=== PATIENT | female | born 2005 | race Caucasian/White ===

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

== ENCOUNTER → 2025-02-24 | Outpatient (CLI) | payer OTHER, SELFPAY ==
[2025-02-24 12:09] LABS: Hematocrit 41.3 % (37-47); Hemoglobin 13.2 g/dL (12.0-15.0); Immature Granulocytes Count 0.020 X10^3/uL (0.0-0.0); Mean Corp Hgb Conc 32.0 g/dL (32-36); Mean Corpuscular Volume 86.0 fL (81-99); Mean Platelet Vol. 10.2 fl (6.2-12.0); NRBC Flagged by Analyzer 0 % (0-5); Platelet Count 236 K/mm3 (150-450); RBC Distribution Width CV 15.2 % (11.6-14.6); RBC Distribution Width SD 47.9 fl (35.1-43.9); Red Blood Count 4.80 M/mm3 (4.2-5.4); White Blood Count 5.8 K/mm3 (4.4-11.0)
[2025-02-24 12:55] LABS: AST(SGOT) 20 U/L (<=31); Alanine Aminotransfer ALT/SGPT 14 U/L (<=34); Albumin, Serum 4.6 g/dL (3.5-5.0); Alkaline Phosphatase 86 U/L (35-104); Anion Gap 10 (5-15); BUN 13 mg/dL (4-19); BUN/Creat Ratio 16.5 RATIO (10-20); Calcium,Total 9.6 mg/dL (7.6-11.0); Carbon Dioxide 26.0 mmol/L (21.0-32.0); Chloride 104 mmol/L (98-108); Ferritin 11 ng/mL (22-378); Follicle Stimulating Hormone 4.5 mIU/mL; Globulin 2.5 g/dL (2.2-4.2); Glucose 88 mg/dL (70-99); Potassium 3.9 mmol/L (3.3-5.1)
== END | disposition home or self-care (01) ==
PROVIDERS: PCP Family Medicine; Visit Provider Family Medicine
DX: R00.0 Tachycardia, unspecified (principal); N91.5 Oligomenorrhea, unspecified
CPT/HCPCS: 36415; 80053; 82627; 82728; 83001; 83002; 84403; 84443; 85025; 82626

== ENCOUNTER → 2025-03-11 | Outpatient (CLI) | payer OTHER, SELFPAY ==
--- OUTSIDE RECORDS SUMMARY | 2025-03-11 09:00 | XMS RPT_ITS | CCD ---
Author Organization [facility] Care Team Providers [facility] Manager Name Role Phone Donald Bangura DO Primary Care Provider [phone] LASHAY GARRISON Attending Unavailable LASHAY GARRISON Referring Unavailable DONALD BANGURA Primary Care Unavailable LASHAY GARRISON Referring Unavailable DONALD BANGURA Primary Care Unavailable DONALD BANGURA Primary Care Unavailable DONALD BANGURA Primary Care Unavailable DONALD BANGURA Attending Unavailable DONATO LUBIN Attending Unavailable DONALD BANGURA Primary Care Unavailable Donald Bangura DO Primary Care Provider Reinaldo JAIN, Dr. Burgess Emergency Provider Dr. Corry Rock MD Primary Care Provider Reinaldo JAIN, Dr. Burgess Attending Provider Pranav JAIN, Dr. Wheatley Attending Provider Corry Rock Primary Care Unavailable Corry Rock Attending Unavailable Aditya Najera Attending Unavailable Corry Rock Primary Care Unavailable Corry Rock Referring Unavailable Corry Rock Primary Care Unavailable Corry Rock Attending Unavailable Medications Current Medications Medication Drug Class(es) Dates Sig (Normalized) Sig (Original) naproxen 500 mg oral tablet (4 sources) Nonsteroidal Anti-inflammatory Drug Start: 10-31-2023 End: 12-01-2023 take 1 tablet by mouth twice daily at mealtime for pain naproxen (NAPROSYN) 500 mg tablet Take 1 tablet by mouth two times a day with meals. for pain. Take with food. 60 tablet 0 12/01/2023 Active Comment on above: Take 1 tablet by taryn th two times a day with meals. for pain. Take with food. Completed/Discontinued Medications Medication Drug Class(es) Dates Sig (Normalized) Sig (Original) ofloxacin 3 mg/ml otic solution (2 sources) Quinolone Antimicrobial Start: 02-16-2019 End: 01-30-2022 ofloxacin (FLOXIN) 0.3 % otic solution Indications: Acute swimmer's ear of left side Use 5 Drops in the left ear once daily. 10 mL 02/16/2019 01/30/2022 Discontinued Comment on above: Use 5 Drops in the l eft ear once daily. Problems Problem Classification Problem Date Documented Date Episodic/Chronic Administrative/socia l admission (2 sources) Special examination status; Translations: [Encounter for examination for participation in sport] 02-09-2020 Episodic Cardiac dysrhythmias (5 sources) Sinus tachycardia; Translations: [Tachycardia, unspecified] Onset: 02-25-2025 12-21-2024 Episodic Immunizations and screening for infectious disease (1 source) Patient encounter status; Translations: [Encounter for immunization] 02-05-2023 Episodic Joint disorders and dislocations; trauma-related (1 source) Dislocation of acromioclavicular joint; Translations: [Unspecified dislocation of left acromioclavicular joint, initial encounter] 10-31-2023 Episodic Other acquired deformities (7 sources) Scoliosis deformity of spine; Translations: [Scoliosis, unspecified] Onset: 04-09-2013 04-09-2013 Chronic Other circulatory disease (2 sources) Elevated blood-pressure reading without diagnosis of hypertension; Translations: [Elevated blood-pressure reading, without diagnosis of hypertension] 12-21-2024 Episodic Other lower respiratory disease (2 sources) Dyspnea; Translations: [Dyspnea, unspecified] 12-21-2024 Episodic Other lower respiratory disease (2 sources) Hyperventilation; Translations: [Hyperventilation] 12-21-2024 Episodic Other non-traumatic joint disorders (2 sources) Pain in left shoulder; Translations: [Pain in joint, shoulder region] 10-31-2023 Episodic Residual codes; unclassified (1 source) Pain; Translations: [Pain, unspecified] 10-31-2023 Episodic Residual codes; unclassified (1 source) Pain, unspecified; Translations: [Pain] Onset: 10-31-2023 Episodic Sprains and strains (2 sources) Strain of muscle, fascia and tendon of other parts of biceps, left arm, initial encounter; Translations: [Sprains and strains of other specified sites of shoulder and upper arm] Onset: 11-03-2023 11-03-2023 Episodic Results Test Name Value Interpretation Reference Range Facility DHEA Sulfateon 02-25-2025 DHEA SULFATE 379.0 ug/dL Normal 110.0-431.7 [facility] Comment on above: Order Comment: N Result Comment: Perf ormed at: [facility] [address] [id number] Internal Revenue Service Agent: Edmar Camilo PhD, Phone: [phone] Performed By: #### L 509.3001, L501.9520, L100.0100, L503.6550, L500.4050, L3300.1500, L3100.5055 ####[facility] [address] [place], [place], [id number] L509.3001on 02-25-2025 Testosterone [Mass/Vol] 53.20 ng/dL Normal 9-58 [facility] Comment on above: Order Comment: ABNER Smith ADD TESTOSTERONE TO 02/24/25 LABS. THG4 3D. G4 4J. Performed By: #### L 509.3001, L501.9520, L100.0100, L503.6550, L500.4050, L3300.1500, L3100.5055 ####[facility] [address] [place], [place], [id number] Absolute lymphocyte countOrd ered By: Corry Rock on 02-24-2025 Lymphocytes Auto (Unsp spec) [#/Vol] 1.80 10*3/uL 0.83-4.51 [facility] Absolute neutrophil countOrd ered By: Corry Rock on 02-24-2025 Neutrophils (Bld) [#/Vol] 3.4 10*3/uL 2.0-7.7 [facility] Anion gap in Serum or Plasma Ordered By: Corry Rock on 02-24-2025 Anion gap [Moles/Vol] 10 mmol/L -15 [facility] Automated lymphocyte count a s percentage of total leukocytesOrdered By: Corry Rock on 02-24-2025 Lymphocytes/100 WBC Auto (Unsp spec) 31.1 % - [facility] BUN/creatinine ratioOrdered By: Corrymayco Rock on 02-24-2025 Urea nitrogen/Creatinine [Mass ratio] 16.5 mg/mg 10- [facility] Basophil percentageOrdered B y: Corry Rock on 02-24-2025 Basophils/100 WBC (Bld) 0.3 % 0-1 [facility] Bilirubin, totalOrdered By: Corry Rock on 02-24-2025 Bilirubin [Mass/Vol] 1.11 mg/dL 0.00-1.30 [facility] CBC W/Diff, Automatedon 02-11 Absolute Lymph 1.80 X10 3/uL Normal 0.83-4.51 [facility] Comment on above: Performed By: #### L 509.3001, L501.9520, L100.0100, L503.6550, L500.4050, L3300.1500, L3100.5055 #### [facility] [address] [place], [address] Absolute Neut 3.4 X10 3/uL Normal 2.0-7.7 [facility] Comment on above: Performed By: #### L 509.3001, L501.9520, L100.0100, L503.6550, L500.4050, L3300.1500, L3100.5055 #### [facility] [address] [place], [address] Basophils/100 WBC (Bld) 0.3 % Normal 0-1 [facility] Comment on above: Performed By: #### L 509.3001, L501.9520, L100.0100, L503.6550, L500.4050, L3300.1500, L3100.5055 #### [facility] [address] [place], [address] Eosinophils/100 WBC (Bld) 1.6 % Normal 0-5 [facility] Comment on above: Performed By: #### L 509.3001, L501.9520, L100.0100, L503.6550, L500.4050, L3300.1500, L3100.5055 #### [facility] [address] [place], [address] Erythrocyte distribution width (RBC) [Ratio] 15.2 % High 11.6-14.6 [facility] Comment on above: Performed By: #### L 509.3001, L501.9520, L100.0100, L503.6550, L500.4050, L3300.1500, L3100.5055 #### [facility] [address] [place], [address] Hematocrit (Bld) [Volume fraction] 41.3 % Normal 37-47 [facility] Comment on above: Performed By: #### L 509.3001, L501.9520, L100.0100, L503.6550, L500.4050, L3300.1500, L3100.5055 #### [facility] [address] [place], [address] Hemoglobin (Bld) [Mass/Vol] 13.2 g/dL Normal 12.0-15.0 [facility] Comment on above: Performed By: #### L 509.3001, L501.9520, L100.0100, L503.6550, L500.4050, L3300.1500, L3100.5055 #### [facility] [address] [place], [address] IG% 0.300 Normal 0.0-0.9 [facility] Comment on above: Result Comment: IG% - Immature Granulocytes (promyelocytes, myelocytes and metamyelocytes) > 1% indicates that a LEFT SHIFT is Present. Performed By: #### L 509.3001, L501.9520, L100.0100, L503.6550, L500.4050, L3300.1500, L3100.5055 #### [facility] [address] [place] [place], [address] Lymphocytes/100 WBC (Bld) 31.1 % Normal 19-41 [facility] Comment on above: Performed By: #### L 509.3001, L501.9520, L100.0100, L503.6550, L500.4050, L3300.1500, L3100.5055 #### [facility] [address] [place], [address] MCH (RBC) [Entitic mass] 27.5 pg Normal 27.0-32.0 [facility] Comment on above: Performed By: #### L 509.3001, L501.9520, L100.0100, L503.6550, L500.4050, L3300.1500, L3100.5055 #### [facility] [address] [place], [address] MCHC (RBC) [Mass/Vol] 32.0 g/dL Normal 32-36 [facility] Comment on above: Performed By: #### L 509.3001, L501.9520, L100.0100, L503.6550, L500.4050, L3300.1500, L3100.5055 #### [facility] [address] [place], [address] MCV (RBC) [Entitic vol] 86.0 fL Normal 81-99 [facility] Comment on above: Performed By: #### L 509.3001, L501.9520, L100.0100, L503.6550, L500.4050, L3300.1500, L3100.5055 #### [facility] [address] [place], [address] Monocytes/100 WBC (Bld) 7.4 % Normal 0-10 [facility] Comment on above: Performed By: #### L 509.3001, L501.9520, L100.0100, L503.6550, L500.4050, L3300.1500, L3100.5055 #### [facility] [address] [place], [address] Neutrophils/100 WBC (Bld) 59.3 % Normal 47-70 [facility] Comment on above: Performed By: #### L 509.3001, L501.9520, L100.0100, L503.6550, L500.4050, L3300.1500, L3100.5055 #### [facility] [address] [place], [address] Nucleated RBC (Bld) [#/Vol] 0 10*3/uL Normal 0-5 [facility] Comment on above: Performed By: #### L 509.3001, L501.9520, L100.0100, L503.6550, L500.4050, L3300.1500, L3100.5055 #### [facility] [address] [place], [address] Platelet mean volume (Bld) [Entitic vol] 10.2 fL Normal 6.2-12.0 [facility] Comment on above: Performed By: #### L 509.3001, L501.9520, L100.0100, L503.6550, L500.4050, L3300.1500, L3100.5055 #### [facility] [address] [place], [address] Platelets (Bld) [#/Vol] 236 10*3/uL Normal 150-450 [facility] Comment on above: Performed By: #### L 509.3001, L501.9520, L100.0100, L503.6550, L500.4050, L3300.1500, L3100.5055 #### [facility] [address] [place], [address] RBC (Bld) [#/Vol] 4.80 10*6/uL Normal 4.2-5.4 [facility] Comment on above: Performed By: #### L 509.3001, L501.9520, L100.0100, L503.6550, L500.4050, L3300.1500, L3100.5055 #### [facility] [address] [place], [address] RDW SD 47.9 fl High 35.1-43.9 [facility] Comment on above: Performed By: #### L 509.3001, L501.9520, L100.0100, L503.6550, L500.4050, L3300.1500, L3100.5055 #### [facility] [address] [place], [address] WBC (Bld) [#/Vol] 5.8 10*3/uL Normal 4.4-11.0 [facility] Comment on above: Performed By: #### L 509.3001, L501.9520, L100.0100, L503.6550, L500.4050, L3300.1500, L3100.5055 #### [facility] [address] [place], [address] Carbon dioxide, total [Moles /volume] in Central venous bloodOrdered By: Corry Rock on 02-24-2025 CO2 [Moles/Vol] 26.0 mmol/L 21.0-32.0 [facility] Chloride assayOrdered By: Natan Rock on 02-24-2025 Chloride [Moles/Vol] 104 mmol/L 98-108 [facility] Comprehensive Metabolic Prof ilon 02-24-2025 Albumin [Mass/Vol] 4.6 g/dL Normal 3.5-5.0 [facility] Comment on above: Performed By: #### L 509.3001, L501.9520, L100.0100, L503.6550, L500.4050, L3300.1500, L3100.5055 #### [facility] [address] [place], [address] Albumin/Globulin [Mass ratio] 1.8 {ratio} Normal 0.9-2.4 [facility] Comment on above: Performed By: #### L 509.3001, L501.9520, L100.0100, L503.6550, L500.4050, L3300.1500, L3100.5055 #### [facility] [address] [place], [address] ALK PHOS 86 U/L Normal 35-104 [facility] Comment on above: Performed By: #### L 509.3001, L501.9520, L100.0100, L503.6550, L500.4050, L3300.1500, L3100.5055 #### [facility] [address] [place], [address] ALT [Catalytic activity/Vol] 14 U/L Normal <=34 [facility] Comment on above: Performed By: #### L 509.3001, L501.9520, L100.0100, L503.6550, L500.4050, L3300.1500, L3100.5055 #### [facility] [address] [place], [address] AST [Catalytic activity/Vol] 20 U/L Normal <=31 [facility] Comment on above: Performed By: #### L 509.3001, L501.9520, L100.0100, L503.6550, L500.4050, L3300.1500, L3100.5055 #### [facility] [address] [place], [address] Bilirubin [Mass/Vol] 1.11 mg/dL Normal 0.00-1.30 [facility] Comment on above: Performed By: #### L 509.3001, L501.9520, L100.0100, L503.6550, L500.4050, L3300.1500, L3100.5055 #### [facility] [address] [place], [address] BUN/CRE 16.5 RATIO Normal 10-20 [facility] Comment on above: Performed By: #### L 509.3001, L501.9520, L100.0100, L503.6550, L500.4050, L3300.1500, L3100.5055 #### [facility] [address] [place], [address] Calcium [Mass/Vol] 9.6 mg/dL Normal 7.6-11.0 [facility] Comment on above: Performed By: #### L 509.3001, L501.9520, L100.0100, L503.6550, L500.4050, L3300.1500, L3100.5055 #### [facility] [address] [place], [address] Chloride [Moles/Vol] 104 mmol/L Normal 98-108 [facility] Comment on above: Performed By: #### L 509.3001, L501.9520, L100.0100, L503.6550, L500.4050, L3300.1500, L3100.5055 #### [facility] [address] [place], [address] CO2 [Moles/Vol] 26.0 mmol/L Normal 21.0-32.0 [facility] Comment on above: Performed By: #### L 509.3001, L501.9520, L100.0100, L503.6550, L500.4050, L3300.1500, L3100.5055 #### [facility] [address] [place], [address] Creatinine [Mass/Vol] 0.76 mg/dL Normal 0.70-1.20 [facility] Comment on above: Performed By: #### L 509.3001, L501.9520, L100.0100, L503.6550, L500.4050, L3300.1500, L3100.5055 #### [facility] [address] [place], [address] GAP 10 Normal 5-15 [facility] Comment on above: Performed By: #### L 509.3001, L501.9520, L100.0100, L503.6550, L500.4050, L3300.1500, L3100.5055 #### [facility] [address] [place] [place], [address] GFR/1.73 sq M.predicted among non-blacks MDRD (S/P/Bld) [Vol rate/Area] 114 mL/min/{1.73_m2} Normal >60 [facility] Comment on above: Result Comment: mL/m in/1.73m2 CKD-EPI Creatinine Equation (2020) Performed By: #### L 509.3001, L501.9520, L100.0100, L503.6550, L500.4050, L3300.1500, L3100.5055 #### [facility] [address] [place], [address] Globulin (S) [Mass/Vol] 2.5 g/dL Normal 2.2-4.2 [facility] Comment on above: Performed By: #### L 509.3001, L501.9520, L100.0100, L503.6550, L500.4050, L3300.1500, L3100.5055 #### [facility] [address] [place], [address] Glucose [Mass/Vol] 88 mg/dL Normal 70-99 [facility] Comment on above: Performed By: #### L 509.3001, L501.9520, L100.0100, L503.6550, L500.4050, L3300.1500, L3100.5055 #### [facility] [address] [place], [address] Potassium [Moles/Vol] 3.9 mmol/L Normal 3.3-5.1 [facility] Comment on above: Performed By: #### L 509.3001, L501.9520, L100.0100, L503.6550, L500.4050, L3300.1500, L3100.5055 #### [facility] [address] [place], [address] Sodium [Moles/Vol] 140 mmol/L Normal 133-145 [facility] Comment on above: Performed By: #### L 509.3001, L501.9520, L100.0100, L503.6550, L500.4050, L3300.1500, L3100.5055 #### [facility] [address] [place], [address] T PROT 7.2 g/dL Normal 5.9-8.4 [facility] Comment on above: Performed By: #### L 509.3001, L501.9520, L100.0100, L503.6550, L500.4050, L3300.1500, L3100.5055 #### [facility] [address] [place], [address] Urea nitrogen [Mass/Vol] 13 mg/dL Normal 4-19 [facility] Comment on above: Performed By: #### L 509.3001, L501.9520, L100.0100, L503.6550, L500.4050, L3300.1500, L3100.5055 #### [facility] [address] [place], [address] Eosinophil percentageOrdered By: Corry Rock on 02-24-2025 Eosinophils/100 WBC (Bld) 1.6 % 0-5 [facility] Erythrocyte distribution wid th ratioOrdered By: Corry Rock on 02-24-2025 Erythrocyte distribution width (RBC) [Ratio] 15.2 % High 11.6-14.6 [facility] Erythrocyte distribution wid th standard deviationOrdered By: Corry Rock on 02-24-2025 Erythrocyte distribution width (RBC) [Ratio] 47.9 fl High 35.1-43.9 [facility] FSH and LHon 02-24-2025 FSH 4.5 mIU/mL Normal [facility] Comment on above: Result Comment: FEMA LE: Follicular: 1.4 - 18.1 mIU/mL Midcycle: 3.4 - 33.4 mIU/mL Luteal: 1.5 - 9.1 mIU/mL Post Menopause: 23.0 - 116.3 mIU/mL MALE: 1.4 - 18.1 mIU/mL Performed By: #### L 509.3001, L501.9520, L100.0100, L503.6550, L500.4050, L3300.1500, L3100.5055 ####[facility] [address] [place], [place], [id number] LH 15.9 mIU/mL Normal [facility] Comment on above: Result Comment: FEMA LE: Follicular: 1.9-12.5 mIU/mL Midcycle: 8.7-76.3 mIU/mL Luteal: 0.5-16.9 mIU/mL Post Menopause: 15.9-54.0 mIU/mL MALE: 20-70 Years: 1.5-9.3 mIU/mL >70 Years: 3.1-34.6 mIU/mL Performed By: #### L 509.3001, L501.9520, L100.0100, L503.6550, L500.4050, L3300.1500, L3100.5055 ####[facility] [address] [place], [address] Ferritinon 02-24-2025 Ferritin [Mass/Vol] 11 ng/mL Low 22-378 [facility] Comment on above: Performed By: #### L 509.3001, L501.9520, L100.0100, L503.6550, L500.4050, L3300.1500, L3100.5055 ####[facility] [address] [place], [address] Glomerular filtration rate ( GFR) estimation/1.73 sq m using serum, plasma, or whole bOrdered By: Corry Rock on 02-24-2025 GFR/1.73 sq M.predicted among non-blacks MDRD (S/P/Bld) [Vol rate/Area] 114 mL/min/{1.73_m2} >60 [facility] Comment on above: mL/min/1.73m2 CKD-EP I Creatinine Equation (2020) Hematocrit Auto (Bld) [Volum e fraction]Ordered By: Corry Rock on 02-24-2025 Hematocrit (Bld) [Volume fraction] 41.3 % 37-47 [facility] Hemoglobin measurementOrdere d By: Corry Rock on 02-24-2025 Hemoglobin (Bld) [Mass/Vol] 13.2 g/dL 12.0-15.0 [facility] Immature granulocytes/100 WB C Auto (Bld)Ordered By: Corry Rock on 02-24-2025 Immature granulocytes/100 WBC (Bld) 0.300 % 0.0-0.9 [facility] Comment on above: IG% - Immature Granu locytes (promyelocytes, myelocytes and metamyelocytes) > 1% indicates that a LEFT SHIFT is Present. LH ser/plasOrdered By: Margarita Rock on 02-24-2025 Lutropin Qn 15.9 m[IU]/mL [facility] Comment on above: FEMALE:Follicular: 1 .9-12.5 mIU/mLMidcycle: 8.7-76.3 mIU/mLLuteal: 0.5-16.9 mIU/mLPost Menopause: 15.9-54.0 mIU/mLMALE:20-70 Years: 1.5-9.3 mIU/mL>70 Years: 3.1-34.6 mIU/mL Laboratory - Chemistry and C hemistry - challengeOrdered By: Corry Rock on 02-24-2025 AST [Catalytic activity/Vol] 20 U/L <32 [facility] Testosterone [Mass/Vol] 53.20 ng/dL 9-58 [facility] MCV (mean corpuscular volume ) determinationOrdered By: Corry Rock on 02-24-2025 MCV (RBC) [Entitic vol] 86.0 fL 81-99 [facility] Mean corpuscular hemoglobin (MCH) determinationOrdered By: Corry Rock on 02-24-2025 MCH (RBC) [Entitic mass] 27.5 pg 27.0-32.0 [facility] Mean corpuscular hemoglobin concentration (MCHC) determinationOrdered By: Corry Rock on 02-24-2025 MCHC (RBC) [Mass/Vol] 32.0 g/dL 32-36 [facility] Mean platelet volume determi nationOrdered By: Corry Rock on 02-24-2025 Platelet mean volume (Bld) [Entitic vol] 10.2 fL 6.2-12.0 [facility] Monocyte percentageOrdered B y: Corry Rock on 02-24-2025 Monocytes/100 WBC (Bld) 7.4 % 0-10 [facility] Neutrophil percentageOrdered By: Corry Rock on 02-24-2025 Neutrophils/100 WBC (Bld) 59.3 % 47-70 [facility] Nucleated red blood cell per centageOrdered By: Corry Rock on 02-24-2025 Nucleated RBC/100 WBC (Bld) [Ratio] 0 % 0-5 [facility] Platelet countOrdered By: Natan Rock on 02-24-2025 Platelets (Bld) [#/Vol] 236 10*3/uL 150-450 [facility] Potassium measurement (mass/ volume)Ordered By: Corry Rock on 02-24-2025 Potassium (Unsp spec) [Mass/Vol] 3.9 mmol/L 3.3-5.1 [facility] RBC Auto (Bld) [#/Vol]Ordere d By: Corry Rock on 02-24-2025 RBC (Bld) [#/Vol] 4.80 10*6/uL 4.2-5.4 [facility] Serum creatinine measurement (mass/volume)Ordered By: Corry Rock on 02-24-2025 Creatinine [Mass/Vol] 0.76 mg/dL 0.70-1.20 [facility] Serum globulin measurementOr dered By: Corry Rock on 02-24-2025 Globulin (S) [Mass/Vol] 2.5 g/dL 2.2-4.2 [facility] Serum glucose measurement (m ass/volume)Ordered By: Corry Rock on 02-24-2025 Glucose [Mass/Vol] 88 mg/dL 70-99 [facility] Serum or plasma alanine reese otransferase (ALT) measurementOrdered By: Corry Rock on 02-24-2025 ALT [Catalytic activity/Vol] 14 U/L <35 [facility] Serum or plasma albumin santiago urement (mass/volume)Ordered By: Corry Rock on 02-24-2025 Albumin [Mass/Vol] 4.6 g/dL 3.5-5.0 [facility] Serum or plasma albumin/glob ulin mass ratioOrdered By: Corry Rock on 02-24-2025 Albumin/Globulin [Mass ratio] 1.8 {ratio} 0.9-2.4 [facility] Serum or plasma alkaline paty sphatase measurementOrdered By: Corry Rock on 02-24-2025 ALP [Catalytic activity/Vol] 86 U/L 35-104 [facility] Serum or plasma calcium santiago urement (mass/volume)Ordered By: Corry Rock on 02-24-2025 Calcium [Mass/Vol] 9.6 mg/dL 7.6-11.0 [facility] Serum or plasma ferritin jose surement (mass/volume)Ordered By: Corry Rock on 02-24-2025 Ferritin [Mass/Vol] 11 ng/mL Low 22-378 [facility] Serum or plasma urea nitroge n measurement (mass/volume)Ordered By: Corry Rock on 02-24-2025 Urea nitrogen [Mass/Vol] 13 mg/dL 4-19 [facility] Sodium levelOrdered By: Julieta Rock on 02-24-2025 Sodium [Moles/Vol] 140 mmol/L 133-145 [facility] TSH DL <= 0.005 mIU/L QnOrde red By: Corry Rock on 02-24-2025 TSH Qn 1.410 uIU/mL 0.300-4.200 [facility] Thyroid Stim Hormone (TSH)on 02-24-2025 TSH 1.410 uIU/mL Normal 0.300-4.200 [facility] Comment on above: Performed By: #### L 509.3001, L501.9520, L100.0100, L503.6550, L500.4050, L3300.1500, L3100.5055 ####[facility] [address] [facility] [place], [address] Total proteinOrdered By: Kenrick Rock on 02-24-2025 Protein [Mass/Vol] 7.2 g/dL 5.9-8.4 [facility] White blood cell (WBC) count Ordered By: Corry Rock on 02-24-2025 WBC (Bld) [#/Vol] 5.8 10*3/uL 4.4-11.0 [facility] 12 Lead EKGon 12-21-2024 12 Lead EKG [facility] [address] [place] [address] 12 Lead EKG 12/21/24 1647 MR#: [id number] Acct: [id number] Name: THAD HUGHES Rep #: [id number] : 2005 19 From: Donato Marcial MD Attending Dr: Status: DEP ER Ordering Dr: Aditya Najera MD Date: 12/21/24 Location: ED Sex: F C Admitted: Test Reason : Blood Pressure : */* mmHG Vent. Rate : 112 BPM Atrial Rate : 112 BPM P-R Int : 152 ms QRS Dur : 86 ms QT Int : 306 ms P-R-T Axes : 70 75 -15 degrees QTcB Int : [address] T wave abnormality, consider inferolateral ischemia Abnormal ECG Confirmed by Donato Marcial ([id number]), publications editor ATIF DYE ([id number]) on 12/23/2024 6:10:02 AM Referred By: Confirmed By: Donato Marcial 12/23/24609 Date Donato Marcial MD CC: Dr. Corry Rock MD; Dr. Aditya Najera MD Signed Normal [facility] Absolute lymphocyte countOrd ered By: Aditya Najera on 12-21-2024 Lymphocytes Auto (Unsp spec) [#/Vol] 1.77 10*3/uL 0.83-4.51 [facility] Absolute neutrophil countOrd ered By: Adityaserge Najera on 12-21-2024 Neutrophils (Bld) [#/Vol] 5.5 10*3/uL 2.0-7.7 [facility] Amphetamine detection with 1 000 ng/mL as cutoffOrdered By: Aditya Najera on 12-21-2024 Amphetamines Screen method >1000 ng/mL Ql (U) Negative < 200 ng/mL [facility] Anion gap in Serum or Plasma Ordered By: Aditya Najera on 12-21-2024 Anion gap [Moles/Vol] 17 mmol/L High 5- [facility] Automated lymphocyte count a s percentage of total leukocytesOrdered By: Aditya Najera on 12-21-2024 Lymphocytes/100 WBC Auto (Unsp spec) 22.4 % - [facility] BUN/creatinine ratioOrdered By: Adityaserge Najera on 12-21-2024 Urea nitrogen/Creatinine [Mass ratio] 12.9 mg/mg 05-02 [facility] Basic Metabolic Profile (BMP )on 12-21-2024 BUN/CRE 12.9 RATIO Normal 05-02 [facility] Comment on above: Performed By: #### L 501.9576, L501.4021, L100.0100, L500.2500 ####[facility] [address] [place], [address] Calcium [Mass/Vol] 10.5 mg/dL Normal 7.6-11.0 [facility] Comment on above: Performed By: #### L 501.9520, L501.4021, L100.0100, L500.2500 ####[facility] [address] [place], [address] Chloride [Moles/Vol] 102 mmol/L Normal 98-108 [facility] Comment on above: Performed By: #### L 501.9520, L501.4021, L100.0100, L500.2500 ####[facility] [address] [place], [address] CO2 [Moles/Vol] 19.3 mmol/L Low 21.0-32.0 [facility] Comment on above: Performed By: #### L 501.9520, L501.4021, L100.0100, L500.2500 ####[facility] [address] [place], [address] Creatinine [Mass/Vol] 0.78 mg/dL Normal 0.70-1.20 [facility] Comment on above: Performed By: #### L 501.9520, L501.4021, L100.0100, L500.2500 ####[facility] [address] [place], [address] ECRCL 108.60 ml/min Normal 50-250 [facility] Comment on above: Performed By: #### L 501.9520, L501.4021, L100.0100, L500.2500 ####[facility] [address] [place], [address] GAP 17 High 5-15 [facility] Comment on above: Performed By: #### L 501.9520, L501.4021, L100.0100, L500.2500 ####[facility] [address] [place], [address] GFR/1.73 sq M.predicted among non-blacks MDRD (S/P/Bld) [Vol rate/Area] 112 mL/min/{1.73_m2} Normal >60 [facility] Comment on above: Result Comment: mL/m in/1.73m2 CKD-EPI Creatinine Equation (2020) Performed By: #### L 501.9520, L501.4021, L100.0100, L500.2500 ####[facility] [address] [place], [address] Glucose [Mass/Vol] 106 mg/dL High 70-99 [facility] Comment on above: Performed By: #### L 501.9520, L501.4021, L100.0100, L500.2500 ####[facility] [address] [place], [address] Potassium [Moles/Vol] 3.3 mmol/L Normal 3.3-5.1 [facility] Comment on above: Result Comment: Hemo lysis present, Results??could be affected. ?? Performed By: #### L 501.9520, L501.4021, L100.0100, L500.2500 ####[facility] [address] [place], [address] Sodium [Moles/Vol] 139 mmol/L Normal 133-145 [facility] Comment on above: Performed By: #### L 501.9520, L501.4021, L100.0100, L500.2500 ####[facility] [address] [place], [address] Urea nitrogen [Mass/Vol] 10 mg/dL Normal 4-19 [facility] Comment on above: Performed By: #### L 501.9520, L501.4021, L100.0100, L500.2500 ####[facility] [address] [place], [address] Basophil percentageOrdered B y: Aditya Najera on 12-21-2024 Basophils/100 WBC (Bld) 0.5 % 0-1 [facility] Blood [facility] by [facility] Base excess Calc (Bld) [Moles/Vol] -2 mmol/L Normal -2 to +2 [facility] Comment on above: Performed By: #### L 9000.0800 #### [facility] [address] [place], [address] Blood Gas Type ART Normal [facility] Comment on above: Performed By: #### L 9000.0800 #### [facility] [address] [place], [address] CO2 [Moles/Vol] 21 mmol/L Normal [facility] Comment on above: Performed By: #### L 9000.0800 #### [facility] [address] [place], [address] HCO3 (Bld) [Moles/Vol] 20.1 mmol/L Low 22-26 [facility] Comment on above: Performed By: #### L 9000.0800 #### [facility] [address] [place], [address] Mode Not entered Normal [facility] Comment on above: Performed By: #### L 9000.0800 #### [facility] [address] [place], [address] O2 Delivery Dev Room Air Normal [facility] Comment on above: Performed By: #### L 9000.0800 #### [facility] [address] [place], [address] pCO2 20.8 mmHg Low 35-45 [facility] Comment on above: Performed By: #### L 9000.0800 #### [facility] [address] [place], [address] pH (Bld) 7.59 [pH] High 7.35-7.45 [facility] Comment on above: Performed By: #### L 9000.0800 #### [facility] [address] [place], [address] PO2 113 mmHG High 75-100 [facility] Comment on above: Performed By: #### L 9000.0800 #### [facility] [address] [place], [address] Read Back By Yes Normal [facility] Comment on above: Performed By: #### L 9000.0800 #### [facility] [address] [place], [address] Results To najera Normal [facility] Comment on above: Performed By: #### L 9000.0800 #### [facility] [address] [place], [address] SITE L Brach Normal [facility] Comment on above: Performed By: #### L 9000.0800 #### [facility] [address] [place], [address] SO2 99 Normal 95-99 [facility] Comment on above: Performed By: #### L 9000.0800 #### [facility] [address] [place], [address] Time Given 17:36:52 Normal [facility] Comment on above: Performed By: #### L 9000.0800 #### [facility] [address] [place], [address] Blood base excess determinat ionOrdered By: Aditya Najera on 12-21-2024 Base excess Calc (BldV) [Moles/Vol] -2 mmol/L -2-2 [facility] Blood bicarbonate measuremen tOrdered By: Aditya Najera on 12-21-2024 HCO3 (Bld) [Moles/Vol] 20.1 mmol/L Low 22-26 [facility] CBC W/Diff, Automatedon 06-1 0-2025 Absolute Lymph 1.77 X10 3/uL Normal 0.83-4.51 [facility] Comment on above: Performed By: #### L 501.9520, L501.4021, L100.0100, L500.2500 ####[facility] [address] [place], [address] Absolute Neut 5.5 X10 3/uL Normal 2.0-7.7 [facility] Comment on above: Performed By: #### L 501.9520, L501.4021, L100.0100, L500.2500 ####[facility] [address] [place], [address] Basophils/100 WBC (Bld) 0.5 % Normal 0-1 [facility] Comment on above: Performed By: #### L 501.9520, L501.4021, L100.0100, L500.2500 ####[facility] [address] [place], [address] Eosinophils/100 WBC (Bld) 0.3 % Normal 0-5 [facility] Comment on above: Performed By: #### L 501.9520, L501.4021, L100.0100, L500.2500 ####[facility] [address] [place], [address] Erythrocyte distribution width (RBC) [Ratio] 13.2 % Normal 11.6-14.6 [facility] Comment on above: Performed By: #### L 501.9520, L501.4021, L100.0100, L500.2500 ####[facility] [address] [place], [address] Hematocrit (Bld) [Volume fraction] 39.4 % Normal 37-47 [facility] Comment on above: Performed By: #### L 501.9520, L501.4021, L100.0100, L500.2500 ####[facility] [address] [place], [address] Hemoglobin (Bld) [Mass/Vol] 13.4 g/dL Normal 12.0-15.0 [facility] Comment on above: Performed By: #### L 501.9520, L501.4021, L100.0100, L500.2500 ####[facility] [address] [place], [address] IG% 0.400 Normal 0.0-0.9 [facility] Comment on above: Result Comment: IG% - Immature Granulocytes (promyelocytes, myelocytes and metamyelocytes) > 1% indicates that a LEFT SHIFT is Present. Performed By: #### L 501.9520, L501.4021, L100.0100, L500.2500 ####[facility] [address] [place], [address] Lymphocytes/100 WBC (Bld) 22.4 % Normal 19-41 [facility] Comment on above: Performed By: #### L 501.9520, L501.4021, L100.0100, L500.2500 ####[facility] [address] [place], [address] MCH (RBC) [Entitic mass] 27.7 pg Normal 27.0-32.0 [facility] Comment on above: Performed By: #### L 501.9520, L501.4021, L100.0100, L500.2500 ####[facility] [address] [place], [address] MCHC (RBC) [Mass/Vol] 34.0 g/dL Normal 32-36 [facility] Comment on above: Performed By: #### L 501.9520, L501.4021, L100.0100, L500.2500 ####[facility] [address] [place], [address] MCV (RBC) [Entitic vol] 81.6 fL Normal 81-99 [facility] Comment on above: Performed By: #### L 501.9520, L501.4021, L100.0100, L500.2500 ####[facility] [address] [place], [address] Monocytes/100 WBC (Bld) 7.2 % Normal 0-10 [facility] Comment on above: Performed By: #### L 501.9520, L501.4021, L100.0100, L500.2500 ####[facility] [address] [place], [address] Neutrophils/100 WBC (Bld) 69.2 % Normal 47-70 [facility] Comment on above: Performed By: #### L 501.9520, L501.4021, L100.0100, L500.2500 ####[facility] [address] [place], [address] Nucleated RBC (Bld) [#/Vol] 0 10*3/uL Normal 0-5 [facility] Comment on above: Performed By: #### L 501.9520, L501.4021, L100.0100, L500.2500 ####[facility] [address] [place], [address] Platelet mean volume (Bld) [Entitic vol] 9.8 fL Normal 6.2-12.0 [facility] Comment on above: Performed By: #### L 501.9520, L501.4021, L100.0100, L500.2500 ####[facility] [address] [place], [address] Platelets (Bld) [#/Vol] 261 10*3/uL Normal 150-450 [facility] Comment on above: Performed By: #### L 501.9520, L501.4021, L100.0100, L500.2500 ####[facility] [address] [place], [address] RBC (Bld) [#/Vol] 4.83 10*6/uL Normal 4.2-5.4 [facility] Comment on above: Performed By: #### L 501.9520, L501.4021, L100.0100, L500.2500 ####[facility] [address] [place], [address] RDW SD 38.9 fl Normal 35.1-43.9 [facility] Comment on above: Performed By: #### L 501.9520, L501.4021, L100.0100, L500.2500 ####[facility] [address] [place], [address] WBC (Bld) [#/Vol] 7.9 10*3/uL Normal 4.4-11.0 [facility] Comment on above: Performed By: #### L 501.9520, L501.4021, L100.0100, L500.2500 ####[facility] [address] [place], [address] Carbon dioxide, total [Moles /volume] in Central venous bloodOrdered By: Aditya Najera on 12-21-2024 CO2 [Moles/Vol] 19.3 mmol/L Low 21.0-32.0 [facility] Chest 1 View (Portable)on Chest 1 View (Portable) [facility] Imaging Services [address] [place] [address] Chest 1 View (Portable) MR#: [id number] Acct: [id number] Name: THAD HUGHES Rep #: [id number] : 2005 F 19 From: Gela Mishra PCP: Dr. Corry Rock MD Status: [facility] ER Study: Chest 1 View (Portable) Date of Exam: 12/21/24 Exam# [id number] Ordering Dr: Aditya Najera MD PROCEDURE: CHEST 1 VIEW (PORTABLE) 12/21/2024 REASON FOR EXAM: CHEST PAIN TECHNIQUE: Frontal view of the chest. COMPARISON: None FINDINGS: No focal consolidations. No pleural effusion or pneumothorax. Cardiac silhouette is unremarkable. No acute fractures. RAD/Chest 1 View (Portable) IMPRESSION: No focal consolidations. Reading Location: [facility] CC: Dr. Corry Rock MD; Dr. Aditya Najera MD Can Maker: Signed Normal [facility] Chloride assayOrdered By: Noelle Najera on 12-21-2024 Chloride [Moles/Vol] 102 mmol/L 98-108 [facility] D-Dimer Quantitative (DVT/PE )on 12-21-2024 D-DIMER QUANT 0.27 FEU/ug/m Normal 0.27-0.49 [facility] Comment on above: Result Comment: NORM AL D-Dimer level (<0.50) indicates no DVT or PE. Performed By: #### L 300.8000 #### [facility] [address] [facility] [place], [address] Emergency Department Summary on 12-21-2024 Emergency Department Summary [facility] Medical Records Department [address] [place] [address] Emergency Department Summary 12/21/24 MR#: [id number] Acct: [id number] Name: THAD HUGHES Rep #: [id number] : 2005 19 From: Aditya Najera MD PCP: Dr. Corry Rock MD Status:REG ER Location: ED HPI History of Present Illness Chief Complaint: Palpitations Detail of Chief Complaint: Palpitations and shortness of breath that started on Friday Informant: patient and parent Onset/Context/Timin g Onset: Today and Days Context: Sudden Onset Timing: Intermittent Quality: Palpitations and pleuritic chest pain with shortness of breath Location: Cardiovascular Current Severity: Mild Maximum Severity: Moderate Worsened by: Anxiousness, activity Relieved by: Not applicable Associated Symptoms Associated Symptoms: recent long distance trip from [place] Narrative Narrative: Patient is a 19-year-old female. She presents with palpitations that started on Friday while flying back from [place]. She was short of breath. Episode lasted approximate 1 hour. She had no discomfort or palpitations on Friday or Friday. She has had 2 episodes today. First episode lasted 30+ minutes. The second episode started at approximately 1530 and has not abated. She reports palpitations, she also reported intermittent bilateral extremity tingling and perioral tingling. She does admit that she is nervous. She is not on any hormonal therapy. There is no history of VTE. There is no family history of VTE. She denies leg pain, swelling or discoloration. She denies fever, chills night sweats. She denies weight gain or weight loss. She denies heat or cold intolerance. Patient denies rhinorrhea, congestion, postnasal drainage or sore throat. Patient denies cough. Prior similar symptoms: No Recent Illness/Hospitaliza tion: No PFSH PFSH Medical History no medical history no medical history Home Medications ???Medication ???Instructions ???Recorded ???Last Taken ???Type NK 12/21/24 Unknown History Allergy/AdvReac Type Severity Reaction Status Date / Time No Known Allergies Allergy Verified 12/21/24 16:23 Surgical History no surgical history no surgical history Social History (Updated 12/21/24 @ 17:[address] Aditya Najera MD) household members: family Smoking Status: Never smoker ROS ROS ED Constitutional Constitutional ED: Denies chills, fever(s), subjective, sweats or weight loss Eyes Eyes: Denies blurry vision or change in vision ENT ENT ED: Denies ear pain, rhinorrhea or sore throat Cardiovascular Cardiovascular: Reports palpitations, racing heartbeat and other Details: Endorsed pleuritic pain. She did not mention pain otherwise ; Denies chest pain, orthopnea or paroxysmal nocturnal dyspnea Respiratory/Chest Respiratory/Chest: Reports dyspnea and dyspnea on exertion; Denies cough, orthopnea or paroxysmal nocturnal dyspnea Gastrointestinal Gastrointestinal: Denies abdominal pain, nausea or vomiting Genitourinary Genitourinary ED: Denies dysuria, hematuria or urinary frequency Musculoskeletal Musculoskeletal: Denies arthralgias or myalgias Neurologic Neurologic: Reports paresthesias RUE, RLE and LLE Psychiatric Psychiatric: Reports anxiety Endocrine Endocrinology: Denies cold intolerance or heat intolerance Hematologic/Lymphat ic Hematologic/Lymphat ic: Reports systems reviewed and no addt'l complaints, except as documented EXAM Physical Exam Const Vital Signs: 12/21/24 16:23 12/21/24 17:23 12/21/24 17:33 Temperature 98.2 F Temperature Source Oral Pulse Rate 132 H 105 H Respiratory Rate 22 H 14 Respiratory Effort Blood Pressure 157/92 H 124/81 H Blood Pressure Mean 113 95 Pulse Ox 99 100 100 Oxygen Delivery Method Room Air Room Air Room Air 12/21/24 17:36 12/21/24 18:04 12/21/24 19:10 Temperature Temperature Source Pulse Rate 92 94 Respiratory Rate 18 18 Respiratory Effort Normal Non-Labored Blood Pressure 124/81 H 124/81 H Blood Pressure Mean 95 95 Pulse Ox 100 100 Oxygen Delivery Method Room Air Room Air 12/21/24 20:07 Temperature Temperature Source Pulse Rate 88 Respiratory Rate 16 Respiratory Effort Blood Pressure Blood Pressure Mean Pulse Ox 100 Oxygen Delivery Method Room Air Positive well nourished and well developed Constitutional Narrative: Patient is a pleasant 19-year-old. Her vitals remarkable for blood pressure 157/92, pulse of 132 and respiratory rate of 22. She is not hypoxic. General Appearance ED: well developed; Negative for pallor HEENT Reports moist mucous membranes HEENT Narrative: HEENT exam is remarkable bilateral Chvostek sign. Otherwise negative. Eyes PERRL Eyes Narrative: Patient noted to (more content not included)... Normal [facility] Eosinophil percentageOrdered By: Aditya Najera on 12-21-2024 Eosinophils/100 WBC (Bld) 0.3 % 0-5 [facility] Erythrocyte distribution wid th ratioOrdered By: Aditya Najera on 12-21-2024 Erythrocyte distribution width (RBC) [Ratio] 13.2 % 11.6-14.6 [facility] Erythrocyte distribution wid th standard deviationOrdered By: Aditya Najera on 12-21-2024 Erythrocyte distribution width (RBC) [Ratio] 38.9 fl 35.1-43.9 [facility] Glomerular filtration rate ( GFR) estimation/1.73 sq m using serum, plasma, or whole bOrdered By: Aditya Najera on 12-21-2024 GFR/1.73 sq M.predicted among non-blacks MDRD (S/P/Bld) [Vol rate/Area] 112 mL/min/{1.73_m2} >60 [facility] Comment on above: mL/min/1.73m2 CKD-EP I Creatinine Equation (2020) Hematocrit Auto (Bld) [Volum e fraction]Ordered By: Aditya Najera on 12-21-2024 Hematocrit (Bld) [Volume fraction] 39.4 % 37-47 [facility] Hemoglobin measurementOrdere d By: Aditya Najera on 12-21-2024 Hemoglobin (Bld) [Mass/Vol] 13.4 g/dL 12.0-15.0 [facility] Immature granulocytes/100 WB C Auto (Bld)Ordered By: Adityaserge Najera on 12-21-2024 Immature granulocytes/100 WBC (Bld) 0.400 % 0.0-0.9 [facility] Comment on above: IG% - Immature Granu locytes (promyelocytes, myelocytes and metamyelocytes) > 1% indicates that a LEFT SHIFT is Present. L499.0042on 12-21-2024 Trop T High Sen < 6 Normal <=14 [facility] Comment on above: Performed By: #### L 499.0042 #### [facility] [address] [place], [address] L499.0043on 12-21-2024 Trop T High Sen Normal <=14 [facility] Comment on above: Result Comment: Canc elled via OM: Order cancelled - Patient discharged Performed By: #### L 499.0043 #### [facility] [address] [place], [address] L501.4021on 12-21-2024 Trop T High Sen < 6 Normal <=14 [facility] Comment on above: Performed By: #### L 501.9520, L501.4021, L100.0100, L500.2500 ####[facility] [address] [place], [address] MCV (mean corpuscular volume ) determinationOrdered By: Aditya Najera on 12-21-2024 MCV (RBC) [Entitic vol] 81.6 fL 81-99 [facility] Mean corpuscular hemoglobin (MCH) determinationOrdered By: Aditya Najera on 12-21-2024 MCH (RBC) [Entitic mass] 27.7 pg 27.0-32.0 [facility] Mean corpuscular hemoglobin concentration (MCHC) determinationOrdered By: Aditya Najera on 12-21-2024 MCHC (RBC) [Mass/Vol] 34.0 g/dL 32-36 [facility] Mean platelet volume determi nationOrdered By: Aditya Najera on 12-21-2024 Platelet mean volume (Bld) [Entitic vol] 9.8 fL 6.2-12.0 [facility] Measurement, pHOrdered By: Torres Najera on 12-21-2024 pH (Unsp spec) 7.59 [pH] High 7.35-7.45 [facility] Monocyte percentageOrdered B y: Aditya Najera on 12-21-2024 Monocytes/100 WBC (Bld) 7.2 % 0-10 [facility] Neutrophil percentageOrdered By: Aditya Najera on 12-21-2024 Neutrophils/100 WBC (Bld) 69.2 % 47-70 [facility] No Panel InformationOrdered By: Aditya Najera on 12-21-2024 Urine Buprenorphine Qualitative Negative < 200 ng/mL [facility] Urine Oxycodone Screen Negative < 100 ng/mL [facility] Bld Gas Crit Called To/Read Back By Yes [facility] Blood Gas Notified Time 17:36:52 [facility] Blood Gas Notified Whom reinaldo [facility] Blood Gas Sample Site [facility] Blood Gas Specimen Type ART [facility] Blood Gas Vent Mode Not entered [facility] Oxygen Delivery Device Room Air [facility] Nucleated red blood cell per centageOrdered By: Aditya Najera on 12-21-2024 Nucleated RBC/100 WBC (Bld) [Ratio] 0 % 0-5 [facility] Platelet countOrdered By: Noelle Najera on 12-21-2024 Platelets (Bld) [#/Vol] 261 10*3/uL 150-450 [facility] Potassium measurement (mass/ volume)Ordered By: Aditya Najera on 12-21-2024 Potassium (Unsp spec) [Mass/Vol] 3.3 mmol/L 3.3-5.1 [facility] Comment on above: Hemolysis present, R esults could be affected. Quantitative urine opiates m easurementOrdered By: Aditya Najera on 12-21-2024 Opiates Ql (U) Negative < 300 ng/mL [facility] RBC Auto (Bld) [#/Vol]Ordere d By: Aditya Najera on 12-21-2024 RBC (Bld) [#/Vol] 4.83 10*6/uL 4.2-5.4 [facility] Screening urine fentanyl jose surementOrdered By: Aditya Najera on 12-21-2024 fentaNYL Screen Ql (U) Negative [facility] Serum creatinine measurement (mass/volume)Ordered By: Aditya Najera on 12-21-2024 Creatinine [Mass/Vol] 0.78 mg/dL 0.70-1.20 [facility] Serum glucose measurement (m ass/volume)Ordered By: Aditya Najera on 12-21-2024 Glucose [Mass/Vol] 106 mg/dL High 70-99 [facility] Serum or plasma calcium santiago urement (mass/volume)Ordered By: Aditya Najera on 12-21-2024 Calcium [Mass/Vol] 10.5 mg/dL 7.6-11.0 [facility] Serum or plasma urea nitroge n measurement (mass/volume)Ordered By: Aditya Najera on 12-21-2024 Urea nitrogen [Mass/Vol] 10 mg/dL 4-19 [facility] Sodium levelOrdered By: Aditya Najera on 12-21-2024 Sodium [Moles/Vol] 139 mmol/L 133-145 [facility] TSH DL <= 0.005 mIU/L QnOrde red By: Aditya Najera on 12-21-2024 TSH Qn 1.220 uIU/mL 0.500-4.300 [facility] Thyroid Stim Hormone (TSH)on 12-21-2024 TSH 1.220 uIU/mL Normal 0.500-4.300 [facility] Comment on above: Performed By: #### L 501.9529, L501.4021, L100.0100, L500.2500 ####[facility] [address] [place], [address] Total carbon dioxide measure mentOrdered By: Aditya Najera on 12-21-2024 CO2 [Moles/Vol] 21 mmol/L [facility] Troponin T.cardiac [Mass/vol ume] in Serum or Plasma by High sensitivity methodOrdered By: Aditya Najera on 12-21-2024 Troponin T.cardiac High sensitivity method [Mass/Vol] < 6 ng/L <14 [facility] Troponin T.cardiac High sensitivity method [Mass/Vol] < 6 ng/L <14 [facility] Urine Drug Screen (VISTA)on 12-21-2024 AMPHETAMINES Negative Normal <1000 ng/mL [facility] Comment on above: Performed By: #### L 505.5000 #### [facility] [address] [place], [place], [facility] BARBITIURATES Negative Normal < 200 ng/mL [facility] Comment on above: Performed By: #### L 505.5000 #### [facility] [address] [place] [address] BENZODIAZIPINE Negative Normal < 200 ng/mL [facility] Comment on above: Performed By: #### L 505.5000 #### [facility] [address] [place], [place], [facility] BUP Ur Drug Scr Negative Normal < 200 ng/mL [facility] Comment on above: Performed By: #### L 505.5000 #### [facility] [address] [place], [place], [facility] COCAINE Negative Normal < 300 ng/mL [facility] Comment on above: Performed By: #### L 505.5000 #### [facility] [address] [place] [id number] Fentanyl Negative Normal [facility] Comment on above: Performed By: #### L 505.5000 #### [facility] [address] [place], [address] METHADONE Negative Normal < 300 ng/mL [facility] Comment on above: Performed By: #### L 505.5000 #### [facility] [address] [place], [address] OPIATES Negative Normal < 300 ng/mL [facility] Comment on above: Performed By: #### L 505.5000 #### [facility] [address] [place], [address] OXYCODONE Negative Normal < 100 ng/mL [facility] Comment on above: Performed By: #### L 505.5000 #### [facility] [address] [place], [address] PCP Negative Normal < 25 ng/mL [facility] Comment on above: Performed By: #### L 505.5000 #### [facility] [address] [place], [address] THC Negative Normal < 50 ng/mL [facility] Comment on above: Performed By: #### L 505.5000 #### [facility] [address] [place], [address] Urine benzodiazepine levelOr dered By: Aditya Najera on 12-21-2024 Benzodiazepines Ql (U) Negative < 200 ng/mL [facility] Urine cocaine levelOrdered B y: Aditya Najera on 12-21-2024 Cocaine Ql (U) Negative < 300 ng/mL [facility] Urine kczmx-8-tyngsusorpoyzq abinol (THC) measurementOrdered By: Aditya Najera on 12-21-2024 Cannabinoids Screen Ql (U) Negative < 50 ng/mL [facility] Urine phencyclidine (PCP) de tectionOrdered By: Aditya Najera on 12-21-2024 Phencyclidine Ql (U) Negative < 25 ng/mL [facility] White blood cell (WBC) count Ordered By: Aditya Najera on 12-21-2024 WBC (Bld) [#/Vol] 7.9 10*3/uL 4.4-11.0 [facility] 11-03-2023 CNOV Office Visit (ORFWHP) ---- THAD HUGHES ([id number]) 5 F Date Time Provider Department 11/03/23 8:00 AM DONATO LUBIN ORFP During your visit today, we recorded the following information about you: Donato Lubin MD 11/03/2023 8:43 AM Signed NEW ENCOUNTER This patient is being seen at the request of JENNIFER Trimble and the progress note from this visit will be communicated via shared medical record Chief Complaint: left Shoulder pain History: Patient is a 18 year old female; she reports the following acute injury event: felt a popping sensation while swinging a bat. 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 for pain. Take with food. Allergies: ALLERGIES No Known Allergies REVIEW OF SYSTEMS: CONSTITUTIONAL: Denies fever and weight loss. EYES: Denies acute vision changes. ENT: Denies hearing changes or difficulty swallowing. CARDIAC: Denies chest pain or edema. RESPIRATORY: Denies dyspnea, cough or wheeze. GASTROINTESTINAL: Denies abdominal pain, nausea, vomiting. MUSCULOSKELETAL: See HPI. SKIN: Denies any recent rash or lesion. NEUROLOGICAL: Denies numbness or focal weakness. PSYCHIATRIC: No history of psychiatric symptoms or problems. ENDOCRINE: Denies current diagnosis of diabetes. HEMATOLOGY: Denies episodes of easy bleeding. Allergies, medications, past surgical history and past medical history were reviewed per this encounter. Physical Examination: Region: Shoulder General Appearance: Appears healthy, well-nourished, no deformities. Neck/Spine/Station/ Gait: Full pain free motion of the neck, no tenderness to palpation Left Exam: AROM: Flexion 170, external rotation 60, internal rotation T10 (symmetric) PROM: Normal Point Tenderness location: anterior shoulder over biceps Swelling/Effusion: none Stability: normal Muscle Strength: normal Sensation:normal Reflexes:normal Skin: normal Pulses: normal Special Tests: Positive [place]'s, positive speeds, no significant AC joint tenderness, negative apprehension, negative Glendy/jerk Right Exam: AROM: Flexion 170, external rotation 60, internal rotation T10 (symmetric) PROM: Normal Point Tenderness location:none Swelling/Effusion: none Stability: normal Muscle Strength: normal Sensation:normal Reflexes:normal Skin: normal Pulses: normal Special Tests: Negative apprehension, negative speeds Images have been personally reviewed by me and discussed with patient. Normal Assessment and Plan: This is an 18-year-old uyltn-tzoc-lyeupsua female with left proximal biceps strain. We discussed her diagnosis in detail. We explained that she likely strained her biceps during the follow-through of swinging the bat. We explained that the most predictable outcome would be for her to rest for 2 to 4 weeks until her pain is resolved before resuming competitive activities. 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 Thus, she can play through her symptoms, although we did emphasize that this may cause the injury to linger longer than it would otherwise. We did suggest that she take naproxen uzxqvf-dni-mvryn for 2 to 3 weeks to decrease inflammation. Otherwise, she can return to clinic as needed if her symptoms do not improve after period of rest in the future. [facility] STAFF PHYSICIAN NOTE OF PERSONAL INVOLVEMENT IN CARE Resident's history reviewed. I have personally examined the patient and repeated the lozano components of the exam/history. The assessment and plan were formulated and discussed with the resident/fellow. Please see my below dicatation for all pertinent highlights, including historical emphasis, clinical exam, tests ordered, and the plan moving forward. See resident's note for additional details. Regarding the plan, we have had an in depth discussion today regarding the current symptomatology and possible causes for the current symptoms. This discussion included a personal review of all the available imaging studies with the patient, pertinent lab values, and highlighting lozano findings. In Summary: Highlights: Agree with above. Britney (more content not included)... Normal [facility] CNOVon 10-31-2023 CNOV Office Visit (ORAVON) ---- THAD HUGHES ([id number]) 5 F Date Time Provider Department 10/31/23 5:40 PM LASHAY GARRISON During your visit today, we recorded the following information about you: Lashay Garrison PA-C 10/31/2023 6:49 PM Signed CHIEF COMPLAINT(CC): Left shoulder pain HISTORY OF PRESENT ILLNESS (HPI): PAIN EVALUATION 10/31/2023 1752 Pain Level: 6 Pain Location: Shoulder-Left Description: Sharp;Throbbing Duration Amount of Time: 1 Duration Units: Days Frequency: Continuous Intervention/Comfor t measure: Cold;Medication Thad Muñoz Ruby is a 18-year-old female who comes in with a 1 day history of left shoulder pain. The patient states that she went to swing a bat at softball yesterday and felt a pop in her shoulder. She has had pain in the shoulder since. She has been icing and taking rghe-znt-nqazybu medication with some improvement. She denies any neck pain. She denies any numbness or tingling REVIEW OF SYMPTOMS (ROS): Constitutional: Any recent fevers? No Cardiovascular: Any chest pain? No Respiratory: Any shortness or breath? No Gastrointestinal: Any abdominal discomfort? No Integumentary: Any recent skin changes or rashes? No Neurologic: Any numbness or tingling? See Above Endocrine: Any diagnosis of diabetes? No Hematologic: Any recent bleeding episodes? No MEDICAL HISTORY: No pertinent PMH, PAST MEDICAL HISTORY Diagnosis Date NEGATIVE MEDICAL HISTORY PMH - PAST MEDICAL HISTORY OF 03/06/10 normal color vision Scoliosis 04/09/2013 . PHYSICAL EXAMINATION: Patient's vitals and nursing notes were reviewed. Vitals: LMP 10/30/2022 Skin: Skin color, texture, turgor normal, no suspicious rashes or lesions noted Psychiatric: mood and affect are appropriate, patient is oriented to time, place and person General Appearance: Well appearing, alert, in no acute distress, well-hydrated, and well nourished Cardiovascular: pedal pulses and radial pulses normal, no signs of upper or lower extremity edema Respiratory: no respiratory distress, no audible wheezing, no labored breathing, symmetric thoracic excursion Neurologic: bilateral deep tendon reflexes are normal and symmetric with no pathologic reflexes, sensation is grossly intact Lymphatic: no lymph node enlargement noted in the examined area Musculoskeletal Examination: Examination of the left shoulder: Inspection: normal cervical posture, shoulder alignment, and no joint deformities or swelling noted Shoulder Range of Motion: Flexion: normal at 150-180 degrees Abduction: normal at 125-150 degrees Internal rotation: 90 External rotation: 110 Apley scratch test (internal rotation): Right arm: patient able to reach to T10 Left arm: patient able to reach to T10 SC JOINT: no tenderness to palpation AC JOINT: no tenderness to palpation Scapula exam: normal examination of scapula with no dyskinetic motion noted Asmita Test / Empty Can Test (supraspinatus): positive for pain Resisted lateral rotation test (infraspinatus): positive for pain Belly press test (subscapualris): positive for pain Aceves's test: positive for pain with thumb down, relieved with thumb up Yergason's test: pain elicited at the bicepital groove Desai test: pain elicited at the anterior shoulder Neer test: pain elicited at the anterior shoulder IMAGING: Final results and radiologist's interpretation, available in the [facility] health record. Images were reviewed with the patient/family members in the office today. My personal interpretation of the performed imaging is AC separation ASSESSMENT: Acute pain of left shoulder (primary encounter diagnosis) Ac separation, left, initial encounter PLAN: A prescription for Naproxen 500 mg was sent to the pharmacy. Physical therapy was ordered. It is recommended that the patient follow up with Jakob Lugo, or Debby Chen, Shona Pichardo for possible further imaging and treatment as needed. Detailed instructions were reviewed with the patient and all questions were answered in detail. Patient voiced understanding and compliance with the above plan. We discussed emergent need to return to the express care or go to the emergency department. We discussed red flags associated with this condition and emergent treatment if they present. Lashay Garrison PA-C Referring Provider: LASHAY GARRISON [[id number]] Allergies As of Date: 10/31/2023 (No Known Allergies) Date Reviewed: 10/31/2023 Reviewed by: Lashay Garrison PA-C - Fully Assessed Reason for Visit: New [[id number]] Cmt: Swung bat and injured left shoulder on 10/30/23 Pain [78] Cmt: Swung bat and injured left shoulder on 10/30/23 Primary Visit Diagnosis:Acute pain of left shoulder [M25.512] Other Visit Diagnosis:AC separation, left, initial encounter [S43.102A] Order(s):XR SHOULD (more content not included)... Normal [facility] XR SHLDR >/=3V AP/RUSS AP/OTH R LTon 10-31-2023 XR SHLDR >/=3V AP/RUSS AP/OTHR LT * * *Final Report* * * DATE OF EXAM: Oct 31 2023 5:54PM AFR 5252 - XR SHLDR >/=3V AP/RUSS AP/OTHR LT / PROCEDURE REASON: Pain * * * * Physician Interpretation * * * * TECHNIQUE: XR SHLDR >/=3V AP/RUSS AP/OTHR LT - EXAM DATE: 10/31/2023 5:54 PM CLINICAL HISTORY: Pain COMPARISON: None RESULT: Bony alignment and joint spaces are normal. A fracture is not seen. There is no soft tissue swelling. IMPRESSION: Normal examination Can Maker: ELIZA Transcribe Date/Time: Nov 01 2023 9:19A Dictated by : RICARDO ROONEY MD This examination was interpreted and the report reviewed and electronically signed by: RICARDO ROONEY MD on Nov 01 2023 9:20AM EST [id number] Normal [facility] XR SHLDR >/=3V AP/RUSS AP/OTH R RTon 10-31-2023 XR SHLDR >/=3V AP/RUSS AP/OTHR RT * * *Final Report* * * DATE OF EXAM: Oct 31 2023 6:09PM AFR 5253 - XR SHLDR >/=3V AP/RUSS AP/OTHR RT / PROCEDURE REASON: Acute pain of left shoulder * * * * Physician Interpretation * * * * TECHNIQUE: XR SHLDR >/=3V AP/RUSS AP/OTHR RT - EXAM DATE: 10/31/2023 6:09 PM CLINICAL HISTORY: Acute pain of left shoulder COMPARISON: None RESULT: Bony alignment and joint spaces are normal. A fracture is not seen. There is no soft tissue swelling. IMPRESSION: Normal examination Can Maker: ELIZA Transcribe Date/Time: Nov 01 2023 9:20A Dictated by : RICARDO ROONEY MD This examination was interpreted and the report reviewed and electronically signed by: RICARDO ROONEY MD on Nov 01 2023 9:21AM EST [id number] Normal [facility] CNOVon 06-11-2023 CNOV Office Visit ([facility]) ---- THAD HUGHES ([id number]) 5 F Date Time Provider Department 06/11/23 2:45 PM JOAN TURCIOS [facility] During your visit today, we recorded the following information about you: Temperature Pulse Respiration Blood pressure 98 degrees 58/minute 16/minute 102/60 Weight 63.3 kg Joan Turcios APRN.CNP 06/11/2023 3:46 PM Signed ASSESSMENT/PLAN: 1. Sore throat - ICD9: 462, ICD10: J02.9 (primary diagnosis) - suspect viral - Group A strep molecular testing negative - Discussed supportive care treatment with fluids, rest and analgesia. - STREP A MOLECULAR (POC) 2. Bacterial sinusitis - ICD9: 473.9, 041.9, ICD10: J32.9, B96.89 - Will begin treatment with as per antibiotic as written, see orders - Supportive care with plenty of fluids, rest, and analgesia prn. - AMOXICILLIN 875 MG-POTASSIUM CLAVULANATE 125 MG TABLET 3. Other acute nonsuppurative otitis media of left ear, recurrence not specified - ICD9: 381.00, ICD10: H65.192 - Will begin treatment with as per antibiotic as written, see orders - AMOXICILLIN 875 MG-POTASSIUM CLAVULANATE 125 MG TABLET - Follow-up with your PCP in 3-5 days if symptoms have not improved or sooner if symptoms worsen - Discussed red flags and need for immediate medical evaluation if any occur. - Discussed supportive care treatment with fluids, rest and analgesia. - Discussed expected course of illness Joan Turcios APRN.Joan Santos APRN.JACKIE 06/11/2023 3:48 PM Signed Subjective Nasal Congestion Associated symptoms include congestion, coughing, ear pain, headaches and a sore throat. Pertinent negatives include no chills or shortness of breath. Thad Hughes is a 18 year old female who presents with cough, nasal congestion, headache, sore throat for the past week. She has had difficulty hearing and some pain from her ears. She has not had a fever. She has taken OTC cold/cough medication for symptoms. Review of Systems Constitutional: Negative for chills, fever and malaise/fatigue. HENT: Positive for congestion, ear pain, hearing loss and sore throat. Respiratory: Positive for cough. Negative for shortness of breath. Cardiovascular: Negative. Musculoskeletal: Negative for myalgias. Neurological: Positive for headaches. BP 102/60 Pulse (!) 58 Temp 36.7 ?C (98 ?F) Resp 16 Wt 63.3 kg (139 lb 9.6 oz) LMP 10/30/2022 (Approximate) SpO2 98% PAST MEDICAL HISTORY Diagnosis Date NEGATIVE MEDICAL HISTORY PMH - PAST MEDICAL HISTORY OF 03/06/10 normal color vision Scoliosis 04/09/2013 PAST SURGICAL HISTORY Procedure Laterality Date NONE ALLERGIES Patient has no known allergies. MEDICATIONS amoxicillin-clavula anu potassium (AUGMENTIN) 875-125 mg per tablet Take 1 tablet by mouth two times a day for 5 days. FAMILY HISTORY Problem Relation Age of Onset Heart Paternal Grandfather Heart Sister bicuspid aortic valve. other (lymphoma) Sister non cancerous - paternal side Social History Tobacco Use Smoking status: Never Smokeless tobacco: Never Substance Use Topics Alcohol use: No Drug use: No Objective Physical Exam Vitals and nursing note reviewed. Constitutional: Appearance: Normal appearance. HENT: Right Ear: Tympanic membrane, ear canal and external ear normal. Decreased hearing noted. Left Ear: Ear canal and external ear normal. Decreased hearing noted. A middle ear effusion is present. Tympanic membrane is injected and erythematous. Nose: Mucosal edema, congestion and rhinorrhea present. Mouth/Throat: Pharynx: Uvula midline. No oropharyngeal exudate or posterior oropharyngeal erythema. Cardiovascular: Rate and Rhythm: Normal rate and regular rhythm. Heart sounds: Normal heart sounds. Pulmonary: Effort: Pulmonary effort is normal. No respiratory distress. Breath sounds: Normal breath sounds. No wheezing or rales. Musculoskeletal: Cervical back: Neck supple. Lymphadenopathy: Cervical: No cervical adenopathy. Skin: General: Skin is warm and dry. Findings: No erythema or rash. Neurological: Mental Status: She is alert. ASSESSMENT/PLAN: 1. Sore throat - ICD9: 462, ICD10: J02.9 (primary diagnosis) - suspect viral - Group A strep molecular testing negative - Discussed supportive care treatment with fluids, rest and analgesia. - STREP A MOLECULAR (POC) 2. Bacterial sinusitis - ICD9: 473.9, 041.9, ICD10: J32.9, B96.89 - Will begin treatment with as per antibiotic as written, see orders - Supportive care with plenty of fluids, rest, and analgesia prn. - AMOXICILLIN 875 MG-POTASSIUM CLAVULANATE 125 MG TABLET 3. Other acute nonsuppurative otitis media of left ear, recurrence not specified - ICD9: 381.00, ICD10: H65.192 - Will begin treatment with as per antibiotic as written, see orders - AMOXICILLIN 875 MG-POTASSIUM CLAVULANATE (more content not included)... Normal [facility] CNOVon 02-05-2023 CNOV Office Visit ([facility]) ---- RUBYTHAD ([id number]) 5 F Date Time Provider Department 02/05/23 11:15 AM DONALD BANGURA [facility] During your visit today, we recorded the following information about you: Temperature Pulse Respiration Blood pressure 97.7 degrees 54/minute 24/minute 103/67 Weight Height Last Period 61.2 kg 1.676 m 10/30/22 Donald Bangura DO 02/05/2023 12:51 PM Signed WELL VISIT PEDIATRIC 18+ YRS OLD Thad is a 17 year old who presents today for well exam. SUBJECTIVE CONCERNS: no concerns HISTORY ACTIVE PROBLEM LIST Scoliosis - 04/09/2013 PAST MEDICAL HISTORY Diagnosis Date NEGATIVE MEDICAL HISTORY PMH - PAST MEDICAL HISTORY OF 03/06/10 normal color vision Scoliosis 04/09/2013 PAST SURGICAL HISTORY Procedure Laterality Date NONE ALLERGIES No Known Allergies Medications: No prescriptions on file. FAMILY HISTORY Problem Relation Age of Onset Heart Paternal Grandfather Heart Sister bicuspid aortic valve. other (lymphoma) Sister non cancerous - paternal side Social History Social History Narrative Not on file Smoking Exposure: Do you spend a significant amount of time with anyone who smokes? No School: Entering 12th grade. No academic or school related concerns No behavioral concerns Any concerns regarding peer interactions? No Physical Activity: Types of physical activity/interests: softball and volleyball Recreational Screen Time totaling more than 2 hours of screen time per day. Fainting, dizziness, significant shortness of breath or chest pain with sports or exercise: No History of concussion in the last year: No Safety: Reviewed seat belts, bike helmets, smoke detectors, and sunscreen Diet: -Diet is well balanced and appropriate for age -Fruits and veggies are eaten with most meals -Regularly eats meals with family Elimination: no concerns, normal size and consistency Dental: dental care current Sleep: -no sleep concerns Vision: No vision concerns Hearing: No hearing concerns Growth: No growth concerns Gynecological history: LMP: 11/2022 Cycles are irregular and last 5 days. Dysmenorrhea: none Heavy periods: no Substance use: none Sexual History: Attraction: male Sexually Active: No Screening tools reviewed and discussed with patient/family-PHQ- 9 and Social Determinants of Health. Please see Patient Entered Data. SDOH: Food Insecurity: Not on file Financial Resource Strain: Not on file Transportation Needs: Not on file Housing Stability: Not on file Discussed SDOH results with patient/family. SDOH needs identified: no concerns identified OBJECTIVE Physical Exam: BP 103/67 Pulse (!) 54 Temp 36.5 ?C (97.7 ?F) (Temporal) Resp 24 Ht 167.6 cm (5' 6) Wt 61.2 kg (134 lb 14.4 oz) LMP 10/30/2022 (Approximate) SpO2 100% BMI 21.77 kg/m? Blood pressure %duncan are 20 % systolic and 56 % diastolic based on the 2017 AAP Clinical Practice Guideline. This reading is in the normal blood pressure range. Blood pressure %duncan are 20 % systolic and 56 % diastolic based on the 2017 AAP Clinical Practice Guideline. This reading is in the normal blood pressure range. 56 %ile (Z= 0.16) based on CDC (Girls, 2-20 Years) BMI-for-age based on BMI available as of 02/05/2023. Last BMI: Wt: 66.6 kg (146 lb 14.4 oz) (84 %, Z= 0.99)* BMI: 23.72 kg/(m2) Last 4 Encounter Wt Readings: Date: Wt: 02/05/2023 61.2 kg (134 lb 14.4 oz) (69 %, Z= 0.49)* 01/30/2022 66.6 kg (146 lb 14.4 oz) (84 %, Z= 0.99)* 01/29/2021 63.7 kg (140 lb 8 oz) (81 %, Z= 0.87)* 10/31/2020 62.6 kg (138 lb) (79 %, Z= 0.82)* Last 4 Encounter Ht Readings: Date: Ht: 02/05/2023 167.6 cm (5' 6) (76 %, Z= 0.70)* 01/30/2022 167.6 cm (5' 5.98) (77 %, Z= 0.73)* 01/29/2021 167.6 cm (5' 6) (78 %, Z= 0.79)* 01/27/2019 165.6 cm (5' 5.2) (79 %, Z= 0.80)* General: Well developed, No acute distress Head: normocephalic Eyes: conjunctivae/cornea s clear Ears: normal external ear and canal, tympanic membranes with normal landmarks Nose: no erythema or rhinorrhea Oropharynx: moist mucous membranes, no erythema or exudate Neck: supple, no adenopathy Spine: Back symmetric, no curvature. Resp: lungs clear to auscultation Heart: RRR, normal S1 and S2. , No murmurs Breast: No nodules or lesions Abdomen: Soft, nontender, nondistended, no palpable organomegaly or masses, normal bowel sounds Genitalia: Kyle stage IV, no inguinal masses, no rashes or lesions, vaginal orifice visualized Extremities: Full ROM and no swelling, erythema or tenderness Neuro: No focal deficits or abnormal findings present Skin: no rashes ASSESSMENT AND PLAN: 17 year well child 56 %ile (Z= 0.16) based on CDC (Girls, 2-20 Years) BMI-for-age based on BMI available as of 02/05/2023. Thad is healthy range (BMI 5th% - 84th%): -To maintain a healthy weigh (more content not included)... Normal [facility] XR Ankle - right AP and Late ral and obliqueon 10-31-2020 IMPRESSION: Lateral ankle soft tissue swelling and tibiotalar joint effusion. No fracture identified. Can Maker: ELIZA Transcribe Date/Time: Oct 31 2020 1:46P Dictated by : ASHWINI DAY MD This examination was interpreted and the report reviewed and electronically signed by: NARAYAN WOOTEN MD on Oct 31 2020 1:52PM [facility] DIVISION OF RADIOLOGY * * *Final Report* * * DATE OF EXAM: Oct 31 2020 1:44PM WOX 5297 - XR ANKLE 3V AP/LAT/OBL RT / PROCEDURE REASON: Acute right ankle pain * * * * Physician Interpretation * * * * TECHNIQUE: XR ANKLE 3V AP/LAT/OBL RT HISTORY: 15 years Female Acute right ankle pain COMPARISON: None RESULT: The ankle mortise and joint spaces are normal. Normal bone alignment. No evidence of fracture. There is tibiotalar joint effusion and lateral ankle soft tissue swelling. DIVISION OF RADIOLOGY Provider, [facility] [place] - 10/31/2020 * * *Final Report* * * DATE OF EXAM: Oct 31 2020 1:44PM WOX 5297 - XR ANKLE 3V AP/LAT/OBL RT / PROCEDURE REASON: Acute right ankle pain * * * * Physician Interpretation * * * * TECHNIQUE: XR ANKLE 3V AP/LAT/OBL RT HISTORY: 15 years Female Acute right ankle pain COMPARISON: None RESULT: The ankle mortise and joint spaces are normal. Normal bone alignment. No evidence of fracture. There is tibiotalar joint effusion and lateral ankle soft tissue swelling. IMPRESSION IMPRESSION: Lateral ankle soft tissue swelling and tibiotalar joint effusion. No fracture identified. Can [facility] Transcribe Date/Time: Oct 31 2020 1:46P Dictated by : ASHWINI DAY MD This examination was interpreted and the report reviewed and electronically signed by: NARAYAN WOOTEN MD on Oct 31 2020 1:52PM EST [facility] Radiology Study observation (narrative) [facility] XR Ankle - right AP and Late ral and obliqueOrdered By: Cc Provider on 10-31-2020 [facility] Vital Signs Date Time Vital Sign Value Performing Clinician Shoshana peraza 12-21-2024 20:07-0400 Heart rate 88 /min Dr. Aditya Najera MD Work Phone: [facility] 12-21-2024 20:07-0400 Respiratory rate 16 /min Dr. Aditya Najera MD Work Phone: [facility] 12-21-2024 20:07-0400 SaO2% (BldA) [Mass fraction] 100 % Dr. Aditya Najera MD Work Phone: [facility] 12-21-2024 19:10-0400 Diastolic blood pressure 81 mm[Hg] Dr. Aditya Najera MD Work Phone: [facility] 12-21-2024 19:10-0400 Systolic blood pressure 124 mm[Hg] Dr. Aditya Najera MD Work Phone: [facility] 12-21-2024 16:23-0400 Body height 167.[address] Aditya Najera MD Work Phone: [facility] 12-21-2024 16:23-0400 Body mass index (BMI) [Percentile] Per age and sex 74.3 % Dr. Aditya Najera MD Work Phone: [facility] 12-21-2024 16:23-0400 Body mass index (BMI) [Ratio] 24.3 kg/m2 Dr. Aditya Najera MD Work Phone: [facility] 12-21-2024 16:23-0400 Body temperature 98.2 [degF] Dr. Aditya Najera MD Work Phone: [facility] 12-21-2024 16:23-0400 Body weight 68.[address] Aditya Najera MD Work Phone: [facility] 02-05-2023 11:27-0400 Body height 167.6 cm Donald Bangura DO Work Phone: [facility] 02-05-2023 11:27-0400 Body mass index (BMI) [Percentile] Per age and sex 56.28 % Donald Bangura DO Work Phone: [facility] 02-05-2023 11:27-0400 Body temperature 97.7 [degF] Donald Bangura DO Work Phone: [facility] 02-05-2023 11:27-0400 Body weight 61.19 kg Donald Bangura DO Work Phone: [facility] 02-05-2023 11:27-0400 Diastolic blood pressure 67 mm[Hg] Donald Bangura DO Work Phone: [facility] 02-05-2023 11:27-0400 Heart rate 54 /min Donald Bangura DO Work Phone: [facility] 02-05-2023 11:27-0400 Respiratory rate 24 /min Donald Bernard BOLIVAR Work Phone: [facility] 02-05-2023 11:270400 SaO2% (BldA) [Mass fraction] 100 % Donald Bangura DO Work Phone: [facility] 02-05-2023 11:270400 Systolic blood pressure 103 mm[Hg] Donald Bangura Work Phone: [facility] 01-30-2022 14:11-0400 Body height 167.6 cm Donald Bangura Work Phone: [facility] 01-30-2022 14:11-0400 Body mass index (BMI) [Percentile] Per age and sex 77.44 % Donald Bernard BOLIVAR Work Phone: [facility] 01-30-2022 14:11-0400 Body temperature 98.8 [degF] Dnoald Bangura DO Work Phone: [facility] 01-30-2022 14:11-0400 Body weight 66.63 kg Donald Bernard BOLIVAR Work Phone: [facility] 01-30-2022 14:11-0400 Diastolic blood pressure 67 mm[Hg] Donald Bangura DO Work Phone: [facility] 01-30-2022 14:11-0400 Heart rate 63 /min Donald Bangura DO Work Phone: [facility] 01-30-2022 14:11-0400 Respiratory rate 16 /min Donald Bangura DO Work Phone: [facility] 01-30-2022 14:11-0400 SaO2% (BldA) [Mass fraction] 100 % Donald Bangura DO Work Phone: [facility] 01-30-2022 14:11-0400 Systolic blood pressure 102 mm[Hg] Donald Bangura DO Work Phone: [facility] Encounters Encounter Date Encounter Type Care Provider Facility Start: 03-11-2025 ambulatory Corry Rock Facility: [facility] Start: 02-24-2025 End: 02-24-[address] Aditya Najera MD Work Phone: -[facility] Start: 02-24-2025 End: 02-24-[address] Corry Rock MD -Laboratory Ida [facility] Start: 02-24-2025 End: 02-24-2025 ambulatory Corry Rock Facility:[facility] Start: 12-21-2024 End: 12-21-2024 Emergency department patient visit Dr. Aditya Najera MD Work Phone: -Emergency Department Work Phone: Start: 11-27-2023 Refill Lashay Stills PA-C Work Phone: Orthopaedics Comment on above: Refill Request Start: 11-03-2023 End: 11-03-2023 ambulatory DONATO LUBIN Facility:[facility] Start: 11-03-2023 End: 11-03-2023 Patient encounter procedure Donato Lubin MD Work Phone: [facility] [place] Comment on above: Strain of left bicep s, initial encounter (Primary Dx) Start: 10-31-2023 End: 10-31-2023 ambulatory LASHAY STILLS Facility:[facility] Start: 10-31-2023 End: 10-31-2023 Patient encounter procedure Lashay Stills PA-C Work Phone: Orthopaedics Comment on above: Acute pain of left s houlder (Primary Dx); AC separation, left, initial encounter Start: 10-31-2023 End: 10-31-2023 Subsequent hospital visit by physician Clifford [facility] Rej Work Phone: Radiology Comment on above: Pain [R52] Start: 06-11-2023 End: 06-11-2023 ambulatory DONALD BANGURA Facility:[facility] Start: 02-05-2023 End: 02-05-2023 ambulatory DONALD BANGURA Facility:[facility] Start: 02-05-2023 End: 02-05-2023 Patient encounter procedure Donald Bangura DO Work Phone: [facility] [place] Comment on above: Encounter for genera l adult medical examination without abnormal findings (Primary Dx); Encounter for immunization Start: 02-05-2023 End: 02-05-2023 Patient encounter status Donald Bangura DO Work Phone: [facility] Work Phone: Start: 01-30-2022 End: 01-30-2022 Patient encounter procedure Donald Bangura DO Work Phone: [facility] Comment on above: Encounter for routin e child health examination without abnormal findings (Primary Dx) Start: 01-30-2022 End: 01-30-2022 Patient encounter status Donald Bangura DO Work Phone: [facility] Start: 10-31-2020 End: 10-31-2020 Subsequent hospital visit by physician Clifford [facility] Cathy Work Phone: Radiology Comment on above: Acute right ankle pa in [M25.571] Procedures Date Procedure Procedure Detail Performing Clinician Start: 02-24-2025 Dehydroepiandrostero ne sulfate level Dr. Aditya Najera MD Work Phone: Comment on above: Performed at: [address] Director: Edmar Camilo PhD, Phone: [phone] Start: 02-24-[address] Fol[address] stimulating hormone measurement Dr. Aditya Najera MD Work Phone: Comment on above: FEMALE:Follicular: 1 .4 - 18.1 mIU/mLMidcycle: 3.4 - 33.4 mIU/mLLuteal: 1.5 - 9.1 mIU/mLPost Menopause: 23.0 - 116.3 mIU/mLMALE: 1.4 - 18.1 mIU/mL Start: 12-21-2024 Methadone measurement, urine Dr. Aditya Najera MD Work Phone: Start: 12-21-2024 Plain chest X-ray Dr. Torres Najera MD Work Phone: Start: 12-21-2024 Carbon dioxide measu rement, partial pressure Dr. Aditya Najera MD Work Phone: Start: 12-21-2024 Gases blood o2 satur ation only direct santiago Dr. Aditya Najera MD Work Phone: Start: 12-21-2024 Measurement of parti al pressure of oxygen in blood Dr. Aditya Najera MD Work Phone: Start: 12-21-2024 D-dimer assay, quantitative Dr. Aditya Najera MD Work Phone: Comment on above: NORMAL D-Dimer level (<0.50) indicates no DVT or PE. Start: 12-21-[address] 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 [employer] Work Phone: Plan of Treatment Date Care Activity Detail Author Start: 01-28-2028 Urine microalbumin profile [facility] Start: 12-21-2024 End: 12-21-2024 [facility] Start: 03-14-2024 Covid-19 Vaccine ( season) Covid-19 Vaccine ( season) [facility] Start: 03-14-2024 Influenza vaccination C [facility] Start: 02-06-2024 Adult depression screening assessment DEPRESSION SCREENING [facility] Start: 07-14-2023 Behavioral Health Screening Behavioral Health Screening [facility] Start: 03-14-2023 Covid-19 Vaccine ( season) Covid-19 Vaccine ( season) [facility] Start: 03-14-2023 Influenza vaccination INFLUENZA (#1) [facility] Start: 2023 Anxiety Screening Anxiety Screening [facility] Start: 2023 Depression Screening Depression Scre ening [facility] Start: 2023 GC (Gonorrhea) Screening (18-24) GC (Gonorrhea) Screening (18-24) [facility] Start: 2023 Hepatitis C screening Hepatitis C Sc jason [facility] Start: 2023 HIV screening HIV Screening [facility] Start: 2023 Screening for Chlamy rob trachomatis Chlamydia Screening (18-24) [facility] Start: 03-14-2022 Influenza vaccination INFLUENZA (#1) [facility] Start: 01-29-2022 Adult depression screening assessment DEPRESSION SCREENING [facility] Start: 2021 Meningococcal B Vaccine: Consider Based On Risk (1 of 2 - Patient Seeks Protection) Meningococcal B Vaccine: Consider Based On Risk (1 of 2 - Patient Seeks Protection) [facility] Start: 2021 MENINGOCOCCAL B: Consider based on risk (1 of 2 - Patient Seeks Protection) MENINGOCOCCAL B: Consider based on risk (1 of 2 - Patient Seeks Protection) [facility] Start: 2021 MENINGOCOCCAL CONJUG ATE (2 - 2-dose series) MENINGOCOCCAL CONJUGATE (2 - 2-dose series) [facility] Start: 02-12-2020 CHLAMYDIA SCREENING (<18) CHLAMYDIA SCREENING (<18) [facility] Start: 02-12-2020 GC (GONORRHEA) SCREENING (<18) GC (GONORRHEA) SCREENING (<18) [facility] Start: 02-12-2020 HPV Vaccine (1 - 3-d ose series) HPV Vaccine (1 - 3-dose series) [facility] Start: 2019 PEDS TO ADULT TRANSITION ANNUAL ASSESSMENT PEDS TO ADULT TRANSITION ANNUAL ASSESSMENT [facility] Start: 02-12-2016 HPV VACCINE (1 - 2-d ose series) HPV VACCINE (1 - 2-dose series) [facility] Start: 2015 MENINGOCOCCAL B: Consider based on risk (1 of 2 - Risk Bexsero 2-dose series) MENINGOCOCCAL B: Consider based on risk (1 of 2 - Risk Bexsero 2-dose series) [facility] Start: 2014 HPV VACCINE (1 - 2-d ose series) HPV VACCINE (1 - 2-dose series) [facility] Start: 2005 COVID-19 VACCINE (#1) COVID-19 VACCI NE (#1) [facility] Patient Education ED Hyperventil ation Syndrome [facility] Work Phone: Patient referral [facility] Work Phone: XR Shoulder - left 3 Views XR SHOULDER GENERAL 3V OR MORE AP/TRUE AP/OTHER LEFT Radiology Routine Pain 10/31/2023 5:54 PM EDT [facility] Work Phone: End: 11-29-2024 XR Shoulder - right 3 Views XR SHOULDER GENERAL 3V OR MORE AP/TRUE AP/OTHER RIGHT Radiology Routine Acute pain of left shoulder 1 Occurrences starting 10/31/2023 until 11/29/2024 [facility] Work Phone: Comment on above: 1 Occurrences starti ng 10/31/2023 until 11/29/2024 XR Shoulder - right 3 Views XR SHOULDER GENERAL 3V OR MORE AP/TRUE AP/OTHER RIGHT Radiology Routine Acute pain of left shoulder 10/31/2023 6:09 PM EDT [facility] Work Phone: [facility] Immunizations Immunization Date Immunization Notes Care Provider Dominguez navas 02-05-2023 meningococcal (MenACWY-TT) vaccine, quadrivalent (MENQUADFI) Donald Bangura DO Work Phone: [facility] 01-27-2018 meningococcal polysaccharide (groups A, C, Y and W-135) diphtheria toxoid conjugate vaccine (MCV4P) Donald Bangura DO Work Phone: [facility] 01-27-2018 tetanus toxoid, redu hayde diphtheria toxoid, and acellular pertussis vaccine, adsorbed Donald Bangura DO Work Phone: [facility] 04-03-2012 influenza virus vacc ine, live, attenuated, for intranasal use Donald Bangura DO Work Phone: [facility] Work Phone: 04-03-2012 influenza virus vacc ine, unspecified formulation Lashay Garrison PA-C Work Phone: [facility] 03-15-2011 varicella virus vaccine Florentino Bangura DO Work Phone: [facility] Work Phone: 05-22-2010 influenza virus vacc ine, live, attenuated, for intranasal use Donald Bangura DO Work Phone: [facility] 03-06-2010 diphtheria, tetanus toxoids and acellular pertussis vaccine Donald Bangura DO Work Phone: [facility] Work Phone: 03-06-2010 measles, mumps and rubella virus vaccine Donald Bangura DO Work Phone: [facility] Work Phone: 03-06-2010 poliovirus vaccine, inactivated Donald Bangura DO Work Phone: [facility] Work Phone: 03-06-2010 varicella virus vaccine Florentino Bangura DO Work Phone: [facility] Work Phone: 05-22-2009 influenza virus vacc ine, live, attenuated, for intranasal use Donald Bangura DO Work Phone: [facility] Work Phone: 04-01-2008 measles, mumps and rubella virus vaccine Donald Bangura DO Work Phone: [facility] Work Phone: 04-01-2008 poliovirus vaccine, inactivated Donald Bangura DO Work Phone: [facility] Work Phone: 03-20-2007 hepatitis B vaccine, pediatric or pediatric/adolescent dosage Donald Bangura DO Work Phone: [facility] Work Phone: 03-20-2007 poliovirus vaccine, inactivated Donlad Bangura DO Work Phone: [facility] Work Phone: 08-19-2006 DTaP-hepatitis B and poliovirus vaccine Donald Bangura DO Work Phone: [facility] Work Phone: 06-03-2006 diphtheria, tetanus toxoids and acellular pertussis vaccine Donald Bangura DO Work Phone: [facility] Work Phone: 06-03-2006 pneumococcal conjuga te vaccine, 7 valent Donald Bangura DO Work Phone: [facility] Work Phone: 03-03-2006 haemophilus influenz ae type b vaccine, HbOC conjugate Donald Bangura DO Work Phone: [facility] Work Phone: 03-03-2006 pneumococcal conjuga te vaccine, 7 valent Donald Bangura DO Work Phone: [facility] Work Phone: 2005 diphtheria, tetanus toxoids and acellular pertussis vaccine Donald Bangura DO Work Phone: [facility] Work Phone: 2005 haemophilus influenz ae type b vaccine, HbOC conjugate Donald Bangura DO Work Phone: [facility] Work Phone: 2005 diphtheria, tetanus toxoids and acellular pertussis vaccine Donald Bangura DO Work Phone: [facility] Work Phone: 2005 pneumococcal conjuga te vaccine, 7 valent Donald Bangura DO Work Phone: [facility] Work Phone: 2005 haemophilus influenz ae type b vaccine, HbOC conjugate Donald Bangura DO Work Phone: [facility] Work Phone: 2005 pneumococcal conjuga te vaccine, 7 valent Donald Bangura DO Work Phone: [facility] Work Phone: 2005 hepatitis B vaccine, adult dosage Donald Bangura DO Work Phone: [facility] Work Phone: 2005 hepatitis B vaccine, pediatric or pediatric/adolescent dosage Donald Bangura DO Work Phone: [facility] Work Phone: Payers Date Payer Category Payer Unknown [id number] 2024 Self-pay [id number] 2024 Self-pay 2019 Private Health Insurance [facility] [employer] [id number] 2019-Present [phone] [address] [place] [id number] HMO [id number] 2019 Private Health Insurance [facility] [employer] [id number] 2019-Present [phone] [address] [place] [id number] HMO [id number] 2019 Unknown [id number] 2019 Unknown [id number] 2006 Private Health Insurance [id number] Unknown [id number] Unknown [id number] Unknown [id number] Social History Date Type Detail Facility Start: 02-05-2023 End: 12-21-2024 Tobacco smoking status NHIS Never smoked tobacco [facility] Start: 10-31-2020 End: 01-29-2021 Alcohol intake Current non-drinker of alcohol (finding) [facility] Start: 2005 Sex Assigned At Not on file C [facility] Start: 10-01-2020 End: 01-30-2022 Exposure to SARS-CoV-2 (event) Not sure [facility] Start: 02-05-2023 Tobacco use and exposure Smoke less tobacco non-user [facility] Start: 06-18-2020 End: 08-05-2022 History of Social function [facility] Start: 06-18-2020 End: 08-05-2022 Area Deprivation Index [facility] National Score (1-10 0), lower number is lower risk 53 [facility] Start: 2005 Sex Assigned At Female [facility] Mental Status Date Assessment Result Facility 12-21-2024 Cognitive function Level Of Cons ciousness Awake;Alert;Appropriate;Follow s Commands [facility] Work Phone: Clinical Notes 10-31-2020 to 12-21-2024 Note Date & Type Note Facility 12-21-2024 Discharge summary [facility] 12-21-2024 Radiology Diagnostic study note [facility] [address] [place] [address] Chest 1 View (Portable) MR#: [id number] Acct: [id number] Name: THAD HUGHES Rep #: [id number] : 2005 F 19 From: Tosha Thurston MD PCP: Dr. Corry Rock MD Status: REG ER Study:Chest 1 View (Portable) Date of Exam: 12/21/24 Exam# [id number] Ordering Dr: Noelle Najera MD PROCEDURE: CHEST 1 VIEW (PORTABLE) 12/21/2024 REASON FOR EXAM: CHEST PAIN TECHNIQUE: Frontal view of the chest. COMPARISON: None FINDINGS: No focal consolidations. No pleural effusion or pneumothorax. Cardiac silhouette is unremarkable. No acute fractures. RAD/Chest 1 View (Portable) IMPRESSION: No focal consolidations. Reading Location: [id number] CC: Dr. Corry Rock MD; Dr. Aditya Najera MD ~ Can Maker: Signed [facility] 12-21-2024 Discharge summary Note Date/Time December 21, 2024 8:37pm [facility] Medical Records Department [address] [place] [address] Emergency Department Summary 12/21/24 MR#: [id number] Acct: [id number] Name: THAD HUGHES Rep #:[id number] : 2005 19 From: Aditya Najera MD PCP: Dr. Corry Rock MD Status:REG ER Location: ED HPI History of Present Illness Chief Complaint: Palpitations Detail of Chief Complaint: Palpitations and shortness of breath that started on Friday Informant: patient and parent Onset/Context/Timing Onset: Today and Days Context: Sudden Onset Timing: Intermittent Quality: Palpitations and pleuritic chest pain with shortness of breath Location: Cardiovascular Current Severity: Mild Maximum Severity: Moderate Worsened by: Anxiousness, activity Relieved by: Not applicable Associated Symptoms Associated Symptoms: recent long distance trip from [place] Narrative Narrative: Patient is a 19-year-old female. She presents with palpitations that started onSat while flying back from [place]. She was short of breath. Episode lasted approximate 1 hour. She had no discomfort or palpitations on Friday or Friday. She has had 2 episodes today. First episode lasted 30+ minutes. The second episode started at approximately 1530 and has not abated. She reports palpitations, she also reported intermittent bilateral extremity tingling and perioral tingling. She does admit that she is nervous. She is not on any hormonal therapy. There is no history of VTE. There is no family history of VTE. She denies leg pain, swelling or discoloration. She denies fever, chills night sweats. She denies weight gain or weight loss. She denies heat or cold intolerance. Patient denies rhinorrhea, congestion, postnasal drainage or sore throat. Patient denies cough. Prior similar symptoms: No Recent Illness/Hospitalization: No PFSH PFSH Medical History no medical history no medical history Home Medications ?Medication ?Instructions ?Recorded ?Last Taken ?Type NK 12/21/24 Unknown History Allergy/AdvReac Type Severity Reaction Status Date / Time No Known Allergies Allergy Verified 12/21/24 16:23 Surgical History no surgical history no surgical history Social History (Updated 12/21/24 @ 17:[address] Aditya Najera MD) household members: family Smoking Status: Never smoker ROS ROS ED Constitutional Constitutional ED: Denies chills, fever(s), subjective, sweats or weight loss Eyes Eyes: Denies blurry vision or change in vision ENT ENT ED: Denies ear pain, rhinorrhea or sore throat Cardiovascular Cardiovascular: Reports palpitations, racing heartbeat and other Details: Endorsed pleuritic pain. She did not mention pain otherwise ; Denies chest pain, orthopnea or paroxysmal nocturnal dyspnea Respiratory/Chest Respiratory/Chest: Reports dyspnea and dyspnea on exertion; Denies cough, orthopnea or paroxysmal nocturnal dyspnea Gastrointestinal Gastrointestinal: Denies abdominal pain, nausea or vomiting Genitourinary Genitourinary ED: Denies dysuria, hematuria or urinary frequency Musculoskeletal Musculoskeletal: Denies arthralgias or myalgias Neurologic Neurologic: Reports paresthesias RUE, RLE and LLE Psychiatric Psychiatric: Reports anxiety Endocrine Endocrinology: Denies cold intolerance or heat intolerance Hematologic/Lymphatic Hematologic/Lymphatic: Reports systems reviewed and no addt'l complaints, exceptas documented EXAM Physical Exam Const Vital Signs: 12/21/24 16:23 12/21/24 17:23 12/21/24 17:33 Temperature 98.2 F Temperature Source Oral Pulse Rate 132 H 105 H Respiratory Rate 22 H 14 Respiratory Effort Blood Pressure 157/92 H 124/81 H Blood Pressure Mean 113 95 Pulse Ox 99 100 100 Oxygen Delivery Method Room Air Room Air Room Air 12/21/24 17:36 12/21/24 18:04 12/21/24 19:10 Temperature Temperature Source Pulse Rate 92 94 Respiratory Rate 18 18 Respiratory Effort Normal Non-Labored Blood Pressure 124/81 H 124/81 H Blood Pressure Mean 95 95 Pulse Ox 100 100 Oxygen Delivery Method Room Air Room Air 12/21/24 20:07 Temperature Temperature Source Pulse Rate 88 Respiratory Rate 16 Respiratory Effort Blood Pressure Blood Pressure Mean Pulse Ox 100 Oxygen Delivery Method Room Air Positive well nourished and well developed Constitutional Narrative: Patient is a pleasant 19-year-old. Her vitals remarkable for blood pressure 157/92, pulse of 132 and respiratory rate of 22. She is not hypoxic. General Appearance ED: well developed; Negative for pallor HEENT Reports moist mucous membranes HEENT Narrative: HEENT exam is remarkable bilateral [place] sign. Otherwise negative. Eyes PERRL Eyes Narrative: Patient noted to have spasm of her right upper eyelid. General Eye ED: Negative for pale conjunctiva or scleral icterus Neck no lymphadenopathy, supple and no JVD Chest Wall palpation of chest normal Resp normal respiratory effort and clear to auscultation bilaterally Cardio regular rhythm, S1 normal heart sound, S2 normal heart sound and no murmurs Rate: tachycardic GI normal to inspection, nondistended, normoactive bowel sounds, non-tender, non-distended and no masses; Negative for hepatosplenomegaly Back/Spine Back/Spine Narrative: Inspection of the back is normal. Extremity normal to inspection Extremity Narrative: There is no asymmetry, swelling, discoloration, leg vein distention, palpable cords or tenderness along the distribution of the deep venous system. Neuro oriented x3, CN's II-XII intact bilaterally and no sensory deficits noted Sensorium / Orientation: alert Psych mental status grossly normal Psych Narrative: Patient does not appear anxious. She voices that she is. Skin no rashes or lesions noted, no wounds and skin turgor normal General Skin Exam: elasticity normal; Negative for jaundice or pallor MDM MDM MDM Narrative Medical decision making narrative: Differential diagnosis for tachycardia would be preexcitation syndrome, hyperthyroidism, anxiety, pulmonary embolus. Workup included EKG, chest x-ray, D-dimer, CBC and BMP. When the patient was not with her parents she was asked regarding smoking alcohol use which she denied. She is not sexually active. She states her sister is getting and not sure if that is why she may be nervous. She was informed of her EKG results, chest x-ray results blood count and ABG results. Lab Data Attestation: I reviewed the patient's lab results. Lab results narrative: CBC is normal. Electrolyte panel is normal. Initial and 2-hour troponin are less than 6. TSH is 1.22. Talk screen is negative. D-dimer is normal Labs: Laboratory Results - last 24 hr 12/21/24 12/21/24 12/21/24 17:30 18:20 19:05 WBC 7.9 RBC 4.83 Hgb 13.4 Hct 39.4 MCV 81.6 MCH 27.7 MCHC 34.0 RDW Std Deviation 38.9 RDW Coeff of Elvis 13.2 Plt Count 261 MPV 9.8 Immature Gran % (Auto) 0.400 Neut % (Auto) 69.2 Lymph % (Auto) 22.4 [place] % (Auto) 7.2 Eos % (Auto) 0.3 Baso % (Auto) 0.5 Absolute Neuts (auto) 5.5 Absolute Lymphs (auto) 1.77 Nucleated RBC % 0 D-Dimer Quant (PE/DVT) 0.27 Sodium 139 Potassium 3.3 Chloride 102 Carbon Dioxide 19.3 L Anion Gap 17 H BUN 10 Creatinine 0.78 Estim Creat Clear Calc 108.60 Est GFR (MDRD) Non-Af 112 BUN/Creatinine Ratio 12.9 Glucose 106 H Calcium 10.5 Troponin T High Sens < 6 Troponin T Hi Sens 2 Hr < 6 TSH 1.220 Urine Opiates Screen NEGATIVE U Buprenorphine Qual NEGATIVE Ur Oxycodone Screen NEGATIVE Urine Methadone Screen NEGATIVE Urine Fentanyl Screen NEGATIVE Ur Barbiturates Screen NEGATIVE Ur Phencyclidine Scrn NEGATIVE Ur Amphetamines Screen NEGATIVE U Benzodiazepines Scrn NEGATIVE Urine Cocaine Screen NEGATIVE U Cannabinoids Screen NEGATIVE ABG Data Attestation: I personally reviewed and interpreted this ABG as follows: Interpretation: ABG reveals acute respiratory alkalosis. ABG results: ABG 12/21/24 17:35 Specimen Type ART Sample Site L Brach pH 7.59 H Bicarbonate Actual 20.1 L Total CO2 21 Base Excess -2 O2 Saturation 99 ABG pCO2 20.8 L ABG pO2 113 H O2 Delivery Device Room Air Vent Mode Not entered Crit Call To/Read Back Yes Blood Gas Notified Whom najera Blood Gas Notified Time 17:36:52 Radiography Chest X-Ray - ED: 1 View and Read by ED Physician (Normal with no acute findings. Cardiac silhouette size normal. Lung parenchyma normal. Hilum is normal. Osseous structures are unremarkable. This independent reviewed interpreted by me at 1800.) Diagnostic Testing: Clinical Impression(s) from Imaging Studies Chest X-Ray 12/21/24 17:50 IMPRESSION: No focal consolidations. Reading Location: [facility] EKG Initial EKG: Attestation: I personally reviewed and interpreted this EKG as follows: Interpretation: Sinus Tachycardia (Rate is 112. Parables 152 ms Rickers duration 86 ms. QT duration is very 6 ms. Patient has ossific ST-T wave changes. This is probably due to hyperventilation.) Discharge Plan Triage Chief Complaint: Palpitations ED Provider: Aditya Najera Dx/Rx/DC Orders Clinical Impression: Acute hyperventilation, Sinus tachycardia, Acute dyspnea, Elevated blood-pressure reading without diagnosis of hypertension Instructions: ED Hyperventilation Syndrome Prescriptions: No Action NK Primary Care Provider: Corry Rock Referrals: Donald Bangura DO [Non-Staff] - 3-5 Days if not improving Print Language: Arabic Disposition Disposition: Home, Self Care What to do if you have Problems For any increased pain, shortness of breath, bleeding, nausea or vomiting, chestpain, or any unexpected problems, contact your Primary Care Provider. Call [facility] ([phone]) or report to the closest Emergency Room. Call 911 if necessary. 12/21/242036 <Electronically signed by Aditya Najera MD> Cosigner Signature (if applicable): CC: Dr. Corry Rock MD ~ Signed [facility] Work Phone: 1(875) 495-236105-20-2024 Note* Addendum Note - Donald Bangura DO - 12/01/2023 7:40 PM EDTAddended by: DONALD BANGURA on: 12/01/2023 07:40 PM Modules accepted: Orders [facility]05-20-2024 Miscellaneous Notes* Addendum Note - Donald Bangura DO - 12/01/2023 7:40 PM EDTAddended by: DONALD BANGURA on: 12/01/2023 07:40 PM Modules accepted: Orders documented in this encounterMer[facility]04-[facility]-2024 NoteHNO ID: [id number] Author: DONATO LUBIN MD Service: ? Author Type: Physician Type: Progress Notes Filed: 11/03/2023 08:43 Note Text: NEW ENCOUNTER This patient is being seen at the request of JENNIFER Trimble and the progress note from this visit will be communicated via shared medical record Chief Complaint: left Shoulder pain History: Patient is a 18 year old female; she reports the following acute injury event: felt a popping sensation while swinging a bat. 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 for pain. Take with food. Allergies: ALLERGIES No Known Allergies REVIEW OF SYSTEMS: CONSTITUTIONAL: Denies fever and weight loss. EYES: Denies acute vision changes. ENT: Denies hearing changes or difficulty swallowing. CARDIAC: Denies chest pain or edema. RESPIRATORY: Denies dyspnea, cough or wheeze. GASTROINTESTINAL: Denies abdominal pain, nausea, vomiting. MUSCULOSKELETAL: See HPI. SKIN: Denies any recent rash or lesion. NEUROLOGICAL: Denies numbness or focal weakness. PSYCHIATRIC: No history of psychiatric symptoms or problems. ENDOCRINE: Denies current diagnosis of diabetes. HEMATOLOGY: Denies episodes of easy bleeding. Allergies, medications, past surgical history and past medical history were reviewed per this encounter. Physical Examination: Region: Shoulder General Appearance: Appears healthy, well-nourished, no deformities. Neck/Spine/Station/Gait: Full pain free motion of the neck, no tenderness to palpation Left Exam: AROM: Flexion 170, external rotation 60, internal rotation T10 (symmetric) PROM: Normal Point Tenderness location: anterior shoulder over biceps Swelling/Effusion: none Stability: normal Muscle Strength: normal Sensation:normal Reflexes:normal Skin: normal Pulses: normal Special Tests: Positive [place]'s, positive speeds, no significant AC joint tenderness, negative apprehension, negative Glendy/jerk Right Exam: AROM: Flexion 170, external rotation 60, internal rotation T10 (symmetric) PROM: Normal Point Tenderness location:none Swelling/Effusion: none Stability: normal Muscle Strength: normal Sensation:normal Reflexes:normal Skin: normal Pulses: normal Special Tests: Negative apprehension, negative speeds Images have been personally reviewed by me and discussed with patient. Normal Assessment and Plan: This is an 18-year-old dboxu-uvfg-wyqmntsf female with left proximal biceps strain. We discussed her diagnosis in detail. We explained that she likely strained her biceps during the follow-through of swinging the bat. We explained that the most predictable outcome would be for her to rest for 2 to 4 weeks until her pain is resolved before resuming competitive activities. 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 Thus, she can play through her symptoms, although we did emphasize that this may cause the injury to linger longer than it would otherwise. We did suggest that she take naproxen [id number] for 2 to 3 weeks to decrease inflammation. Otherwise, she can return to clinic as needed if her symptoms do not improve after period of rest in the future. [facility] STAFF PHYSICIAN NOTE OF PERSONAL INVOLVEMENT IN CARE Resident's history reviewed. I have personally examined the patient and repeated the lozano components of the exam/history. The assessment and plan were formulated and discussed with the resident/fellow. Please see my below dicatation for all pertinent highlights, including historical emphasis, clinical exam, tests ordered, and the plan moving forward. See resident's note for additional details. Regarding the plan, we have had an in depth discussion today regarding the current symptomatology and possible causes for the current symptoms. This discussion included a personal review of all the available imaging studies with the patient, pertinent lab values, and highlighting lozano findings. In Summary: Highlights: Agree with above. Tenderness to palpation over the biceps tendon and not the AC joint. X-rays are not in the same plane when comparing contralateral shoulder and this explains the difference in width in the AC joint, not (more content not included)...[id number] History of Present illness Narrative* Donato Lubin MD - 11/03/2023 8:11 AM EDT NEW ENCOUNTER This patient is being seen at the request of JENNIFER Trimble and the progress note from this visit will be communicated via shared medical record Chief Complaint: left Shoulder pain History: Patient is a 18 year old female; she reports the following acute injury event: felt a popping sensation while swinging a bat. 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 for pain. Takewith food. Allergies: ALLERGIES No Known Allergies REVIEW OF SYSTEMS: CONSTITUTIONAL: Denies fever and weight loss. EYES: Denies acute vision changes. ENT: Denies hearing changes or difficulty swallowing. CARDIAC: Denies chest pain or edema. RESPIRATORY: Denies dyspnea, cough or wheeze. GASTROINTESTINAL: Denies abdominal pain, nausea, vomiting. MUSCULOSKELETAL: See HPI. SKIN: Denies any recent rash or lesion. NEUROLOGICAL: Denies numbness or focal weakness. PSYCHIATRIC: No history of psychiatric symptoms or problems. ENDOCRINE: Denies current diagnosis of diabetes. HEMATOLOGY: Denies episodes of easy bleeding. Allergies, medications, past surgical history and past medical history were reviewed per this encounter. Physical Examination: Region: Shoulder General Appearance: Appears healthy, well-nourished, no deformities. Neck/Spine/Station/Gait: Full pain free motion of the neck, no tenderness to palpation Left Exam: AROM: Flexion 170, external rotation 60, internal rotation T10 (symmetric) PROM: Normal Point Tenderness location: anterior shoulder over biceps Swelling/Effusion: none Stability: normal Muscle Strength: normal Sensation:normal Reflexes:normal Skin: normal Pulses: normal Special Tests: Positive [place]'s, positive speeds, no significant AC joint tenderness, negative apprehension, negative Glendy/jerk Right Exam: AROM: Flexion 170, external rotation 60, internal rotation T10 (symmetric) PROM: Normal Point Tenderness location:none Swelling/Effusion: none Stability: normal Muscle Strength: normal Sensation:normal Reflexes:normal Skin: normal Pulses: normal Special Tests: Negative apprehension, negative speeds Images have been personally reviewed by me and discussed with patient. Normal Assessment and Plan: This is an 18-year-old cptpy-rrye-yvildrwg female with left proximal biceps strain. We discussed her diagnosis in detail. We explained that she likely strained her biceps during the follow-through of swinging the bat. We explained that the most predictable outcome would be for her to rest for 2 to 4 weeks until her pain is resolved before resuming competitive activities. 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 Thus, she can play through her symptoms, a lthough we did emphasize that this may cause the injury to linger longer than it would otherwise. We did suggest that she take naproxen [id number] for 2 to 3 weeks to decrease inflammation. Otherwise, she can return to clinic as needed if her symptoms do not improve after period of rest in the future. [facility] STAFF PHYSICIAN NOTE OF PERSONAL INVOLVEMENT IN CARE Resident's history reviewed. I have personally examined the patient and repeated the lozano componentsof the exam/history. The assessment and plan were formulated and discussed with the resident/fellow. Please see my below dicatation for all pertinent highlights, including historical emphasis, clinical exam, tests ordered, and the plan moving forward. See resident's note for additional details. Regarding the plan, we have had an in depth discussion today regarding the current symptomatology and possible causes for the current symptoms. This discussion included a personal review of all the available imaging studies with the patient, pertinent lab values, and highlighting lozano findings. In Summary: Highlights: Agree with above. Tenderness to palpation over the biceps tendon and not the AC joint. X-rays are not in the same plane when comparing contralateral shoulder and this explains the difference in widthin the AC joint, not an injury. Explained this to the patient. Biceps tendon strain, very mild she competed in volleyball this weekend. Judicious use of anti-inflammatories and return as tolerated. Donato Lubin MD Sports Medicine/Orthopaedic Surgery documented in this encounterMer[facility]04-[facility]24 NoteHNO ID: [id number] Author: LASHAY GARRISON PA-C Service: ? Author Type: Physician Truck And Transport Mechanic Type: Progress Notes Filed: 10/31/2023 18:49 Note Text: CHIEF COMPLAINT(CC): Left shoulder pain HISTORY OF PRESENT ILLNESS (HPI): PAIN EVALUATION 10/31/2023 1752 Pain Level: 6 Pain Location: Shoulder-Left Description: Sharp;Throbbing Duration Amount of Time: 1 Duration Units: Days Frequency: Continuous Intervention/Comfort measure: Cold;Medication Thad Hughes is a 18-year-old female who comes in with a 1 day history of left shoulder pain. The patient states that she went to swing a bat at softball yesterday and felt a pop in her shoulder. She has had pain in the shoulder since. She has been icing and taking hxen-eqo-hdtyqhy medication with some improvement. She denies any neck pain. She denies any numbness or tingling REVIEW OF SYMPTOMS (ROS): Constitutional: Any recent fevers? No Cardiovascular: Any chest pain? No Respiratory: Any shortness or breath? No Gastrointestinal: Any abdominal discomfort? No Integumentary: Any recent skin changes or rashes? No Neurologic: Any numbness or tingling? See Above Endocrine: Any diagnosis of diabetes? No Hematologic: Any recent bleeding episodes? No MEDICAL HISTORY: No pertinent PMH, PAST MEDICAL HISTORY Diagnosis Date NEGATIVE MEDICAL HISTORY PMH - PAST MEDICAL HISTORY OF 03/06/10 normal color vision Scoliosis 04/09/2013 . PHYSICAL EXAMINATION: Patient's vitals and nursing notes were reviewed. Vitals: LMP 10/30/2022 Skin: Skin color, texture, turgor normal, no suspicious rashes or lesions noted Psychiatric: mood and affect are appropriate, patient is oriented to time, place and person General Appearance: Well appearing, alert, in no acute distress, well-hydrated, and well nourished Cardiovascular: pedal pulses and radial pulses normal, no signs of upper or lower extremity edema Respiratory: no respiratory distress, no audible wheezing, no labored breathing, symmetric thoracic excursion Neurologic: bilateral deep tendon reflexes are normal and symmetric with no pathologic reflexes, sensation is grossly intact Lymphatic: no lymph node enlargement noted in the examined area Musculoskeletal Examination: Examination of the left shoulder: Inspection: normal cervical posture, shoulder alignment, and no joint deformities or swelling noted Shoulder Range of Motion: Flexion: normal at 150-180 degrees Abduction: normal at 125-150 degrees Internal rotation: 90 External rotation: 110 Apley scratch test (internal rotation): Right arm: patient able to reach to T10 Left arm: patient able to reach to T10 SC JOINT: no tenderness to palpation AC JOINT: no tenderness to palpation Scapula exam: normal examination of scapula with no dyskinetic motion noted Asmita Test / Empty Can Test (supraspinatus): positive for pain Resisted lateral rotation test (infraspinatus): positive for pain Belly press test (subscapualris): positive for pain Aceves's test: positive for pain with thumb down, relieved with thumb up Yergason's test: pain elicited at the bicepital groove Desai test: pain elicited at the anterior shoulder Neer test: pain elicited at the anterior shoulder IMAGING: Final results and radiologist's interpretation, available in the [facility] health record. Images were reviewed with the patient/family members in the office today. My personal interpretation of the performed imaging is AC separation ASSESSMENT: Acute pain of left shoulder (primary encounter diagnosis) Ac separation, left, initial encounter PLAN: A prescription for Naproxen 500 mg was sent to the pharmacy. Physical therapy was ordered. It is recommended that the patient follow up with Jakob Lugo, or Dr. Lucila Rodriguez Alexandria Regotti for possible further imaging and treatment as needed. Detailed instructions were reviewed with the patient and all questions were answered in detail. Patient voiced understanding and compliance with the above plan. We discussed emergent need to return to the express care or go to the emergency department. We discussed red flags associated with this condition and emergent treatment if they present. JENNIFER Trimble[facility]04-19-2024 NoteHNO ID: [id number] Author: FELICITA MEDINA RT(R) Service: Radiology Author Type: Technologist Type: Progress Notes Filed: 10/31/2023 18:08 Note Text: Radiology Service Progress Note PATIENT NAME: Thad Hughes DATE OF SERVICE: October 31, 2023 TIME: 5:46 PM PATIENT IDENTITY VERIFICATION COMPLETED USING TWO (2) IDENTIFIERS: Name and Date of confirmed by patient verbally. FALL SCREENING: Has the patient had 2 falls in the last year or 1 fall with injury or currently using an Ambulatory Assistive Device (Walker, Cane, Wheelchair, Crutches, etc.)? No PATIENT GENDER DATA: Female. status: : No status: NO. PATIENT RELEVANT IMPLANT DATA REVIEWED: Not Applicable PATIENT PRESENTS WITH AN IMPLANTABLE OR ATTACHED DIESEL TRUCK DRIVER: No RADIOLOGY DEPARTMENT: General X-ray: Exam(s) Completed: Upper Extremity X-Ray(s): Shoulder, AP / TRUE AP / AXILLARY bilateral PERIPHERAL IV DATA: Not applicable SIGNED BY: RT Ela(R) October 31, 2023 5:46 [facility]04-19-2024 History of Present illness Narrative* Lashay Garrison PA-C - 10/31/2023 5:52 PM EDT Images from the original note were not included. CHIEF COMPLAINT(CC): Left shoulder pain HISTORY OF PRESENT ILLNESS (HPI): PAIN EVALUATION 10/31/2023 1752 Pain Level: 6 Pain Location: Shoulder-Left Description: Sharp;Throbbing Duration Amount of Time: 1 Duration Units: Days Frequency: Continuous Intervention/Comfort measure: Cold;Medication Thad Hughes is a 18-year-old female who comes in with a 1 day history of left shoulder pain. The patient states that she went to swing a bat at softball yesterday and felt a pop in her shoulder. She has had pain in the shoulder since. She has been icing and taking jfde-ltm-[id number] medication with some improvement. She denies any neck pain. She denies any numbness or tingling REVIEW OF SYMPTOMS (ROS): Constitutional: Any recent fevers? No Cardiovascular: Any chest pain? No Respiratory: Any shortness or breath? No Gastrointestinal: Any abdominal discomfort? No Integumentary: Any recent skin changes or rashes? No Neurologic: Any numbness or tingling? See Above Endocrine: Any diagnosis of diabetes? No Hematologic: Any recent bleeding episodes? No MEDICAL HISTORY: No pertinent PMH, PAST MEDICAL HISTORY Diagnosis Date NEGATIVE MEDICAL HISTORY PMH - PAST MEDICAL HISTORY OF 03/06/10 normal color vision Scoliosis 04/09/2013 . PHYSICAL EXAMINATION: Patient's vitals and nursing notes were reviewed. Vitals: LMP 10/30/2022 Skin: Skin color, texture, turgor normal, no suspicious rashes or lesions noted Psychiatric: mood and affect are appropriate, patient is oriented to time, place and person General Appearance: Well appearing, alert, in no acute distress, well-hydrated, and well nourished Cardiovascular: pedal pulses and radial pulses normal, no signs of upper or lower extremity edema Respiratory: no respiratory distress, no audible wheezing, no labored breathing, symmetric thoracicexcursion Neurologic: bilateral deep tendon reflexes are normal and symmetric with no pathologic reflexes, sensation is grossly intact Lymphatic: no lymph node enlargement noted in the examined area Musculoskeletal Examination: Examination of the left shoulder: Inspection: normal cervical posture, shoulder alignment, and no joint deformities or swelling noted Shoulder Range of Motion: Flexion: normal at 150-180 degrees Abduction: normal at 125-150 degrees Internal rotation: 90 External rotation: 110 Apley scratch test (internal rotation): Right arm: patient able to reach to T10 Left arm: patient able to reach to T10 SC JOINT: no tenderness to palpation AC JOINT: no tenderness to palpation Scapula exam: normal examination of scapula with no dyskinetic motion noted Asmita Test / Empty Can Test (supraspinatus): positive for pain Resisted lateral rotation test (infraspinatus): positive for pain Belly press test (subscapualris): positive for pain Aceves's test: positive for pain with thumb down, relieved with thumb up Yergason's test: pain elicited at the bicepital groove Desai test: pain elicited at the anterior shoulder Neer test: pain elicited at the anterior shoulder IMAGING: Final results and radiologist's interpretation, available in the [facility] health record. Images were reviewed with the patient/family members in the office today. My personal interpretation of the performed imaging is AC separation ASSESSMENT: Acute pain of left shoulder (primary encounter diagnosis) Ac separation, left, initial encounter PLAN: A prescription for Naproxen 500 mg was sent to the pharmacy. Physical therapy was ordered. It is recommended that the patient follow up with Jakob Lugo, or Dr. Lucila Rodriguez Alexandria Regotti for possible further imaging and treatment as needed. Detailed instructions were reviewed with the patient and all questions were answered in detail. Patient voiced understanding and compliance with the above plan. We discussed emergent need to return to the express care or go to the emergency department. We discussed red flags associated with this condition and emergent treatment if they present. Lashay Garrison PA-C documented in this encounter[facility] History of Present illness Narrative* Felicita Medina RT(R) - 10/31/2023 5:00 PM EDT Radiology Service Progress Note PATIENT NAME: Thad Hughes DATE OF SERVICE: October 31, 2023 TIME: 5:46 PM PATIENT IDENTITY VERIFICATION COMPLETED USING TWO (2) IDENTIFIERS: Name and Date of confirmedby patient verbally. FALL SCREENING: Has the patient had 2 falls in the last year or 1 fall with injury or currently using an Ambulatory Assistive Device (Walker, Cane, Wheelchair, Crutches, etc.)? No PATIENT GENDER DATA: Female. status: : No status: NO. PATIENT RELEVANT IMPLANT DATA REVIEWED: Not Applicable PATIENT PRESENTS WITH AN IMPLANTABLE OR ATTACHED DIESEL TRUCK DRIVER: No RADIOLOGY DEPARTMENT: General X-ray: Exam(s) Completed: Upper Extremity X- Ray(s): Shoulder, AP / TRUE AP / AXILLARY bilateral PERIPHERAL IV DATA: Not applicable SIGNED BY: RT Ela(R) October 31, 2023 5:46 PM documented in this encounterMer[facility]11-29-2023 NoteHNO ID: [id number] Author: Joan Turcios APRN.WELDING MACHINE OPERATOR [employer]TR[employer]IC Service: ? Author Type: Nurse Practitioner Type: Progress Notes Filed: 06/11/2023 3:48 PM Note Text: Subjective Nasal Congestion Associated symptoms include congestion, coughing, ear pain, headaches and a sore throat. Pertinent negatives include no chills or shortness of breath. Thad Hughes is a 18 year old female who presents with cough, nasal congestion, headache, sore throat for the past week. She has had difficulty hearing and some pain from her ears. She has not had a fever. She has taken OTC cold/cough medication for symptoms. Review of Systems Constitutional: Negative for chills, fever and malaise/fatigue. HENT: Positive for congestion, ear pain, hearing loss and sore throat. Respiratory: Positive for cough. Negative for shortness of breath. Cardiovascular: Negative. Musculoskeletal: Negative for myalgias. Neurological: Positive for headaches. BP 102/60 Pulse (!) 58 Temp 36.7 ?C (98 ?F) Resp 16 Wt 63.3 kg (139 lb 9.6 oz) LMP 10/30/2022 (Approximate) SpO2 98% PAST MEDICAL HISTORY Diagnosis Date NEGATIVE MEDICAL HISTORY PMH - PAST MEDICAL HISTORY OF 03/06/10 normal color vision Scoliosis 04/09/2013 PAST SURGICAL HISTORY Procedure Laterality Date NONE ALLERGIES Patient has no known allergies. MEDICATIONS amoxicillin-clavulanate potassium (AUGMENTIN) 875-125 mg per tablet Take 1 tablet by mouth two times a day for 5 days. FAMILY HISTORY Problem Relation Age of Onset Heart Paternal Grandfather Heart Sister bicuspid aortic valve. other (lymphoma) Sister non cancerous - paternal side Social History Tobacco Use Smoking status: Never Smokeless tobacco: Never Substance Use Topics Alcohol use: No Drug use: No Objective Physical Exam Vitals and nursing note reviewed. Constitutional: Appearance: Normal appearance. HENT: Right Ear: Tympanic membrane, ear canal and external ear normal. Decreased hearing noted. Left Ear: Ear canal and external ear normal. Decreased hearing noted. A middle ear effusion is present. Tympanic membrane is injected and erythematous. Nose: Mucosal edema, congestion and rhinorrhea present. Mouth/Throat: Pharynx: Uvula midline. No oropharyngeal exudate or posterior oropharyngeal erythema. Cardiovascular: Rate and Rhythm: Normal rate and regular rhythm. Heart sounds: Normal heart sounds. Pulmonary: Effort: Pulmonary effort is normal. No respiratory distress. Breath sounds: Normal breath sounds. No wheezing or rales. Musculoskeletal: Cervical back: Neck supple. Lymphadenopathy: Cervical: No cervical adenopathy. Skin: General: Skin is warm and dry. Findings: No erythema or rash. Neurological: Mental Status: She is alert. ASSESSMENT/PLAN: 1. Sore throat - ICD9: 462, ICD10: J02.9 (primary diagnosis) - suspect viral - Group A strep molecular testing negative - Discussed supportive care treatment with fluids, rest and analgesia. - STREP A MOLECULAR (POC) 2. Bacterial sinusitis - ICD9: 473.9, 041.9, ICD10: J32.9, B96.89 - Will begin treatment with as per antibiotic as written, see orders - Supportive care with plenty of fluids, rest, and analgesia prn. - AMOXICILLIN 875 MG-POTASSIUM CLAVULANATE 125 MG TABLET 3. Other acute nonsuppurative otitis media of left ear, recurrence not specified - ICD9: 381.00, ICD10: H65.192 - Will begin treatment with as per antibiotic as written, see orders - AMOXICILLIN 875 MG-POTASSIUM CLAVULANATE 125 MG TABLET - Follow-up with your PCP in 3-5 days if symptoms have not improved or sooner if symptoms worsen - Discussed red flags and need for immediate medical evaluation if any occur. - Discussed supportive care treatment with fluids, rest and analgesia. - Discussed expected course of illness Joan Turcios APRN.[facility]07-26-2023 NoteHNO ID: [id number] Author: Donald Bangura, DO Service: ? Author Type: Physician Type: Progress Notes Filed: 02/05/2023 12:51 PM Note Text: WELL VISIT PEDIATRIC 18+ YRS OLD Thad is a 17 year old who presents today for well exam. SUBJECTIVE CONCERNS: no concerns HISTORY ACTIVE PROBLEM LIST Scoliosis - 04/09/2013 PAST MEDICAL HISTORY Diagnosis Date NEGATIVE MEDICAL HISTORY PMH - PAST MEDICAL HISTORY OF 03/06/10 normal color vision Scoliosis 04/09/2013 PAST SURGICAL HISTORY Procedure Laterality Date NONE ALLERGIES No Known Allergies Medications: No prescriptions on file. FAMILY HISTORY Problem Relation Age of Onset Heart Paternal Grandfather Heart Sister bicuspid aortic valve. other (lymphoma) Sister non cancerous - paternal side Social History Social History Narrative Not on file Smoking Exposure: Do you spend a significant amount of time with anyone who smokes? No School: Entering 12th grade. No academic or school related concerns No behavioral concerns Any concerns regarding peer interactions? No Physical Activity: Types of physical activity/interests: softball and volleyball Recreational Screen Time totaling more than 2 hours of screen time per day. Fainting, dizziness, significant shortness of breath or chest pain with sports or exercise: No History of concussion in the last year: No Safety: Reviewed seat belts, bike helmets, smoke detectors, and sunscreen Diet: -Diet is well balanced and appropriate for age -Fruits and veggies are eaten with most meals -Regularly eats meals with family Elimination: no concerns, normal size and consistency Dental: dental care current Sleep: -no sleep concerns Vision: No vision concerns Hearing: No hearing concerns Growth: No growth concerns Gynecological history: LMP: 11/2022 Cycles are irregular and last 5 days. Dysmenorrhea: none Heavy periods: no Substance use: none Sexual History: Attraction: male Sexually Active: No Screening tools reviewed and discussed with patient/[id number] and Social Determinants of Health. Please see Patient Entered Data. SDOH: Food Insecurity: Not on file Financial Resource Strain: Not on file Transportation Needs: Not on file Housing Stability: Not on file Discussed SDOH results with patient/family. SDOH needs identified: no concerns identified OBJECTIVE Physical Exam: BP 103/67 Pulse (!) 54 Temp 36.5 ?C (97.7 ?F) (Temporal) Resp 24 Ht 167.6 cm (5' 6) Wt 61.2 kg (134 lb 14.4 oz) LMP 10/30/2022 (Approximate) SpO2 100% BMI 21.77 kg/m? Blood pressure %duncan are 20 % systolic and 56 % diastolic based on the 2017 AAP Clinical Practice Guideline. This reading is in the normal blood pressure range. Blood pressure %duncan are 20 % systolic and 56 % diastolic based on the 2017 AAP Clinical Practice Guideline. This reading is in the normal blood pressure range. 56 %ile (Z= 0.16) based on CDC (Girls, 2-20 Years) BMI-for-age based on BMI available as of 02/05/2023. Last BMI: Wt: 66.6 kg (146 lb 14.4 oz) (84 %, Z= 0.99)* BMI: 23.72 kg/(m2) Last 4 Encounter Wt Readings: Date: Wt: 02/05/2023 61.2 kg (134 lb 14.4 oz) (69 %, Z= 0.49)* 01/30/2022 66.6 kg (146 lb 14.4 oz) (84 %, Z= 0.99)* 01/29/2021 63.7 kg (140 lb 8 oz) (81 %, Z= 0.87)* 10/31/2020 62.6 kg (138 lb) (79 %, Z= 0.82)* Last 4 Encounter Ht Readings: Date: Ht: 02/05/2023 167.6 cm (5' 6) (76 %, Z= 0.70)* 01/30/2022 167.6 cm (5' 5.98) (77 %, Z= 0.73)* 01/29/2021 167.6 cm (5' 6) (78 %, Z= 0.79)* 01/27/2019 165.6 cm (5' 5.2) (79 %, Z= 0.80)* General: Well developed, No acute distress Head: normocephalic Eyes: conjunctivae/corneas clear Ears: normal external ear and canal, tympanic membranes with normal landmarks Nose: no erythema or rhinorrhea Oropharynx: moist mucous membranes, no erythema or exudate Neck: supple, no adenopathy Spine: Back symmetric, no curvature. Resp: lungs clear to auscultation Heart: RRR, normal S1 and S2. , No murmurs Breast: No nodules or lesions Abdomen: Soft, nontender, nondistended, no palpable organomegaly or masses, normal bowel sounds Genitalia: Kyle stage IV, no inguinal masses, no rashes or lesions, vaginal orifice visualized Extremities: Full ROM and no swelling, erythema or tenderness Neuro: No focal deficits or abnormal findings present Skin: no rashes ASSESSMENT AND PLAN: 17 year well child 56 %ile (Z= 0.16) based on CDC (Girls, 2-20 Years) BMI-for-age based on BMI available as of 02/05/2023. Thad is healthy range (BMI 5th% - 84th%): -To maintain a healthy weight, discussed limiting screen time to less than 2 hours per day, physical activity for at least one hour per day, 5 servings of fruits and vegetables per day, 3 meals per day, family meals ar home and no sugar containing beverages No flowsheet data found. Depression screening tool completed and reviewed. Based on scor (more content not included)...[facility]07-26-2023 Instructions* Patient Instructions* Donald Bangura DO - 02/05/2023 11:42 AM EDT Images from the original note were not included. 5 to Go!TM Healthy Kids Inside & Out 5 Eat FIVE fruits and veggies a day 4 Give and get FOUR compliments a day 3 Consume THREE calcium products a day 2 Limit media time to TWO hours a day 1 Get at least ONE hour of exercise a day 0 Consume ZERO sugar-sweetened drinks Go! Be healthy, inside and out! [email or web address].org/5toGo Adolescent to Adult Transition Program [facility] cares about helping you and each of our adolescents and young adults make a smoothtransition to adult care. If your current doctor is a system administration manager, we will work with you to decide the correct age for moving your care to a doctor or other provider who takes care of adults. We suggest that this move take place before age 22. Our office policy is to prepare you to move to a doctor or other provider who takes care of adults. This includes helping you find a doctor or other provider, sending medical records, and talking about any special needs with the new doctor or other provider. If your current doctor is in family medicine, [facility] will prepare you and your family forthe transition to being an adult patient. You will be able to make your own healthcare decisions and will have an adult care team that meets your personal healthcare needs. At age 18, by law, we need your agreement to discuss personal health information with your family. We understand and respect that you may want to include your family in healthcare choices and will partner with you on how and when to include your family in decisions. We will make sure you know what changes to expect. We will also strive to make sure that all care team providers know your needs. We will help you find community resources and specialty care, if needed. Having your information before you come for the first time helps us be sure we do not miss any details. If joining our practice from outside [facility], we will help you request your medical record from past doctor(s) before your first visit. We will make every effort to work with your past providers to ensure a smooth transition and experience. We are always here for you. If you have any questions or concerns, please contact your primary careteam or e-mail Got Transition is the federally funded national resource center on health care transition (HCT). Its aim is to improve transition from pediatric to adult health care through the use of evidence-driven strategies for health field care manager, youth, young adults, and their families. www.gottransition.org https://gottransition.org/resource/?bed-qseeqc-vmycxzm documented in this encounterMer[facility]07-26-2023 History of Present illness Narrative* Donald Bangura DO - 02/05/2023 11:37 AM EDT WELL VISIT PEDIATRIC 18+ YRS OLD Thad is a 17 year old who presents today for well exam. SUBJECTIVE CONCERNS: no concerns HISTORY ACTIVE PROBLEM LIST Scoliosis - 04/09/2013 PAST MEDICAL HISTORY Diagnosis Date NEGATIVE MEDICAL HISTORY PMH - PAST MEDICAL HISTORY OF 03/06/10 normal color vision Scoliosis 04/09/2013 PAST SURGICAL HISTORY Procedure Laterality Date NONE ALLERGIES No Known Allergies Medications: No prescriptions on file. FAMILY HISTORY Problem Relation Age of Onset Heart Paternal Grandfather Heart Sister bicuspid aortic valve. other (lymphoma) Sister non cancerous - paternal side Social History Social History Narrative Not on file Smoking Exposure: Do you spend a significant amount of time with anyone who smokes? No School: Entering 12th grade. No academic or school related concerns No behavioral concerns Any concerns regarding peer interactions? No Physical Activity: Types of physical activity/interests: softball and volleyball Recreational Screen Time totaling more than 2 hours of screen time per day. Fainting, dizziness, significant shortness of breath or chest pain with sports or exercise: No History of concussion in the last year: No Safety: Reviewed seat belts, bike helmets, smoke detectors, and sunscreen Diet: -Diet is well balanced and appropriate for age -Fruits and veggies are eaten with most meals -Regularly eats meals with family Elimination: no concerns, normal size and consistency Dental: dental care current Sleep: -no sleep concerns Vision: No vision concerns Hearing: No hearing concerns Growth: No growth concerns Gynecological history: LMP: 11/2022 Cycles are irregular and last 5 days. Dysmenorrhea: none Heavy periods: no Substance use: none Sexual History: Attraction: male Sexually Active: No Screening tools reviewed and discussed with patient/[id number] and Social Determinants of Health.Please see Patient Entered Data. SDOH: Food Insecurity: Not on file Financial Resource Strain: Not on file Transportation Needs: Not on file Housing Stability: Not on file Discussed SDOH results with patient/family. SDOH needs identified: no concerns identified OBJECTIVE Physical Exam: BP 103/67 Pulse (!) 54 Temp 36.5 C (97.7 F) (Temporal) Resp 24 Ht 167.6 cm (5' 6) Wt 61.2 kg (134 lb 14.4 oz) LMP 10/30/2022 (Approximate) SpO2 100% BMI 21.77 kg/m Blood pressure %duncan are 20 % systolic and 56 % diastolic based on the 2017 AAP Clinical Practice Guideline. This reading is in the normal blood pressure range. Blood pressure %duncan are 20 % systolic and 56 % diastolic based on the 2017 AAP Clinical Practice Guideline. This reading is in the normal blood pressure range. 56 %ile (Z= 0.16) based on CDC (Girls, 2-20 Years) BMI-for-age based on BMI available as of 02/05/2023. Last BMI: Wt: 66.6 kg (146 lb 14.4 oz) (84 %, Z= 0.99)* BMI: 23.72 kg/(m^2) Last 4 Encounter Wt Readings: Date: Wt: 02/05/2023 61.2 kg (134 lb 14.4 oz) (69 %, Z= 0.49)* 01/30/2022 66.6 kg (146 lb 14.4 oz) (84 %, Z= 0.99)* 01/29/2021 63.7 kg (140 lb 8 oz) (81 %, Z= 0.87)* 10/31/2020 62.6 kg (138 lb) (79 %, Z= 0.82)* Last 4 Encounter Ht Readings: Date: Ht: 02/05/2023 167.6 cm (5' 6) (76 %, Z= 0.70)* 01/30/2022 167.6 cm (5' 5.98) (77 %, Z= 0.73)* 01/29/2021 167.6 cm (5' 6) (78 %, Z= 0.79)* 01/27/2019 165.6 cm (5' 5.2) (79 %, Z= 0.80)* General: Well developed, No acute distress Head: normocephalic Eyes: conjunctivae/corneas clear Ears: normal external ear and canal, tympanic membranes with normal landmarks Nose: no erythema or rhinorrhea Oropharynx: moist mucous membranes, no erythema or exudate Neck: supple, no adenopathy Spine: Back symmetric, no curvature. Resp: lungs clear to auscultation Heart: RRR, normal S1 and S2. , No murmurs Breast: No nodules or lesions Abdomen: Soft, nontender, nondistended, no palpable organomegaly or masses, normal bowel sounds Genitalia: Kyle stage IV, no inguinal masses, no rashes or lesions, vaginal orifice visualized Extremities: Full ROM and no swelling, erythema or tenderness Neuro: No focal deficits or abnormal findings present Skin: no rashes ASSESSMENT & PLAN: 17 year well child 56 %ile (Z= 0.16) based on CDC (Girls, 2-20 Years) BMI-for-age based on BMI available as of 02/05/2023. Thad is healthy range (BMI 5th% - 84th%): -To maintain a healthy weight, discussed limiting screen time to less than 2 hours per day, physical activity for at least one hour per day, 5 servings offruits and vegetables per day, 3 meals per day, family meals ar home and no sugar containing beverages No flowsheet data found. Depression screening tool completed and reviewed. Based on score and interview, patient is not at risk for depression. Screening tool discussed with patient, and I recommended no further interventionat this time. - Discussed diet and safety. - Dental care discussed. - ActionRun handout given (See Patient Instructions). - Parent/guardian was counseled [id number] by myself (the billing provider) for the following immunizations and vaccine components, including side effects: MenQuadFi. Parent/guardian consents for immunization and understands risks and benefits. A VIS sheet on each immunization was given to the parent/guardian. - Healthcare transition statement discussed.. - Follow up in one year for routine physical. Donald Bangura DO documented in this encounterMer[facility]07-20-2022 Instructions* Patient Instructions* Donald Bangura DO - 01/30/2022 3:05 PM EDT Images from the original note were not included. 5 to Go!TM Healthy Kids Inside & Out 5 Eat FIVE fruits and veggies a day 4 Give and get FOUR compliments a day 3 Consume THREE calcium products a day 2 Limit media time to TWO hours a day 1 Get at least ONE hour of exercise a day 0 Consume ZERO sugar-sweetened drinks Go! Be healthy, inside and out! [email or web address].org/5toGo Adolescent to Adult Transition Program [facility] cares about helping you and each of our adolescents and young adults make a smoothtransition to adult care. If your current doctor is a system administration manager, we will work with you to decide the correct age for moving your care to a doctor or other provider who takes care of adults. We suggest that this move take place before age 22. Our office policy is to prepare you to move to a doctor or other provider who takes care of adults. This includes helping you find a doctor or other provider, sending medical records, and talking about any special needs with the new doctor or other provider. If your current doctor is in family medicine, [facility] will prepare you and your family forthe transition to being an adult patient. You will be able to make your own healthcare decisions and will have an adult care team that meets your personal healthcare needs. At age 18, by law, we need your agreement to discuss personal health information with your family. We understand and respect that you may want to include your family in healthcare choices and will partner with you on how and when to include your family in decisions. We will make sure you know what changes to expect. We will also strive to make sure that all care team providers know your needs. We will help you find community resources and specialty care, if needed. Having your information before you come for the first time helps us be sure we do not miss any details. If joining our practice from outside [facility], we will help you request your medical record from past doctor(s) before your first visit. We will make every effort to work with your past providers to ensure a smooth transition and experience. We are always here for you. If you have any questions or concerns, please contact your primary careteam or e-mail Got Transition is the federally funded national resource center on health care transition (HCT). Its aim is to improve transition from pediatric to adult health care through the use of evidence-driven strategies for health field care manager, youth, young adults, and their families. www.gottransition.org https://gottransition.org/resource/?nlk-ypuqxp-xjrfbck Healthy Children Ages & Stages Texting Program HealthyChildren.org is an AAP ([place] [employer]) parenting website. It is a great resource for information. They have a new Ages & Stages texting program available to parents. Fill out the information in the link below to start getting helpful tips and resources from AAP experts right to your phone. Be sure to include your child's age so they can send you age appropriate information. https://www.healthychildren.org/Arabic/tips-tools/ArlyudfLwschzvq-Ousbwbt-Kdqzd am/Pages/default.aspx documented in this encounterMercy Health [facility]07-20-2022 History of Present illness Narrative* Donald Bangura DO - 01/30/2022 2:55 PM EDT WELL VISIT PEDIATRIC FEMALE 14-17 YRS OLD SERVICE DATE: 01/30/2022 Thad is a 16 year old female who presents today for well exam accompanied by her mother. SUBJECTIVE CONCERNS: no concerns HISTORY ACTIVE PROBLEM LIST Scoliosis - 04/09/2013 PAST MEDICAL HISTORY Diagnosis Date NEGATIVE MEDICAL HISTORY PMH - PAST MEDICAL HISTORY OF 03/06/10 normal color vision Scoliosis 04/09/2013 PAST SURGICAL HISTORY Procedure Laterality Date NONE ALLERGIES No Known Allergies Medications: No prescriptions on file. FAMILY HISTORY Problem Relation Age of Onset Heart Paternal Grandfather Heart Sister bicuspid aortic valve. other (lymphoma) Sister non cancerous - paternal side Social History Social History Narrative Not on file Smoking Exposure: Does your child spend a significant amount of time in the care of anyone who smokes? No School: Grade: 11th; grades A-B. Physical Activity: Types of physical activity: softball and volleyball Screen Time totaling less than 2 hours of screen time per day. Safety: Reviewed seat belts, bike helmets, smoke detectors and sunscreen Diet: -well rounded diet Elimination: no concerns, normal size and consistency Dental: dental care current Sleep: -no sleep concerns Gynecological history: LMP: 11/2021 Cycles are irregular Dysmenorrhea: none Heavy periods: no Substance use: none Sexual History: Attraction: male Sexually Active: No Screening tools reviewed and discussed with patient/[id number] and Social Determinants of Health.Please see Patient Entered Data. REVIEW OF SYSTEMS GENERAL: No fevers EYES: No vision concerns ENT: No hearing concerns RESPIRATORY: Negative for cough, wheezing or respiratory distress CARDIOVASCULAR: Negative for chest pain, syncope, lightheadness or heart racing SKIN: Negative for lesions, rash, and itching ENDOCRINE: No growth concerns OBJECTIVE Physical Exam: BP 102/67 Pulse 63 Temp 37.1 C (98.8 F) (Temporal) Resp 16 Ht 167.6 cm (5' 5.98) Wt 66.6kg (146 lb 14.4 oz) LMP 06/09/2017 (Approximate) SpO2 100% BMI 23.72 kg/m Blood pressure percentiles are 21 % systolic and 56 % diastolic based on the 2017 AAP Clinical Practice Guideline. This reading is in the normal blood pressure range. 77 %ile (Z= 0.75) based on CDC (Girls, 2-20 Years) BMI-for-age based on BMI available as of 01/30/2022. Last BMI: Wt: 63.7 kg (140 lb 8 oz) (81 %, Z= 0.87)* BMI: 22.68 kg/(m^2) Last 4 Encounter Wt Readings: Date: Wt: 01/30/2022 66.6 kg (146 lb 14.4 oz) (84 %, Z= 0.99)* 01/29/2021 63.7 kg (140 lb 8 oz) (81 %, Z= 0.87)* 10/31/2020 62.6 kg (138 lb) (79 %, Z= 0.82)* 09/04/2020 62.1 kg (137 lb) (79 %, Z= 0.80)* Last 4 Encounter Ht Readings: Date: Ht: 01/30/2022 167.6 cm (5' 5.98) (77 %, Z= 0.73)* 01/29/2021 167.6 cm (5' 6) (78 %, Z= 0.79)* 01/27/2019 165.6 cm (5' 5.2) (79 %, Z= 0.80)* 01/27/2018 162.6 cm (5' 4) (79 %, Z= 0.81)* General: Well developed, No acute distress Head: normocephalic Eyes: conjunctivae/corneas clear Ears: normal external ear and canal, tympanic membranes with normal landmarks Nose: no erythema or rhinorrhea Oropharynx: moist mucous membranes, no erythema or exudate Neck: Supple, no adenopathy; thyroid symmetric, normal size, no bruits Spine: Back symmetric, no curvature Resp: lungs clear to auscultation Heart: RRR, normal S1 and S2. , No murmurs Breast: Kyle Stage IV Abdomen: Soft, nontender, nondistended, no palpable organomegaly or masses, normal bowel sounds Genitalia: Kyle stage IV, no inguinal masses, no rashes or lesions Extremities: No clubbing, cyanosis, or edema., No deformities or skin discoloration. Good capillaryrefill. Full range of motion. Neuro: No focal deficits or abnormal findings present Skin: no rashes, lesions or jaundice ASSESSMENT & PLAN 16 year well child 77 %ile (Z= 0.75) based on CDC (Girls, 2-20 Years) BMI-for-age based on BMI available as of 01/30/2022. Thad is normal weight (BMI 5th% - 84th%): -To maintain a healthy weight, discussed limiting screen time to less than 2 hours per day, physical activity for at least one hour per day, 5 servings offruits and vegetables per day, 3 meals per day, family meals ar home and no sugar containing beverages Based on PHQ-A Score: 0 (recommended cut off score is 11) and interview, presentation is not consistent with depression - Adolescent anticipatory guidance discussed. - Discussed diet and safety. - Dental care discussed. - [employer] handout given (See Patient Instructions). - No immunization ordered at this visit. - Follow up in one year for routine physical. SIGNATURE: Donald Bangura DO PATIENT NAME: Thad Hughes DATE: January 30, 2022 TIME: 2:56 PM [facility] History of Present illness Narrative* Yue Proctor (Rt), Robert - 10/31/2020 1:40 PM EDT Radiology Service Progress Note PATIENT NAME: Thad Hughes DATE OF SERVICE: October 31, 2020 TIME: 1:45 PM PATIENT IDENTITY VERIFICATION COMPLETED USING TWO (2) IDENTIFIERS: Name and Date of confirmedby patient verbally. FALL SCREENING: Has the patient had 2 falls in the last year or 1 fall with injury or currently using an Ambulatory Assistive Device (Walker, Cane, Wheelchair, Crutches, etc.)? No PATIENT GENDER DATA: Female. status: : No status: NO. PATIENT RELEVANT IMPLANT DATA REVIEWED: Not Applicable RADIOLOGY DEPARTMENT: General X-ray: Exam(s) Completed: Lower Extremity X- Ray(s): Ankle, Right PERIPHERAL IV DATA: Not applicable SIGNED BY: RT Danilo October 31, 2020 1:45 PM [facility] Diagnosis Encounter for routine child health examination without abnormal findings- Primary Routine or child health check documented in this encounter [facility]* Diagnosis Encounter for general adult medical examination without abnormal findings- Primary Unspecified general medical examination Encounter for immunization Need for other specified prophylactic vaccination against single bacterial disease documented in this encounter [facility] note* Diagnosis Acute pain of left shoulder- Primary AC separation, left, initial encounter documented in this encounter [facility] note* Diagnosis Pain Generalized pain Acute pain of left shoulder documented [facility]* Diagnosis Strain of left biceps, initial encounter- Primary documented in this encounter [facility] noteNo assessment information availableWWayne Hospital Work Phone: Reason for referral (narrative)* Diagnostic Procedure Only (Routine) - Closed Specialty Diagnoses / Procedures Referred By Nancy dasilva Referred To Contact XR IMAGING Diagnoses Acute pain of left shoulder Procedures XR SHOULDER GENERAL 3V OR MORE AP/TRUE AP/OTHER RIGHT RADEX SHOULDER COMPLETE MINIMUM 2 VIEWS Lashay Garrison PA-C [address] [place] [address] [place] [address] Referral ID Status Reason Start Date Expiration Date V isits Requested Visits Authorized [id number] Closed Auto-Generate d Referral 10/31/2023 11/29/2024 1 1 [facility] (narrative)No reason for referral information availableWWayne Hospital Work Phone: Summary Purpose Family History No Family History Records FoundNo Family History Records FoundNo Family History Records Found Advance Directives No Advanced Directives Records Found Advance Directive Response Recorded Date/ Time Do you have a Healthcare Power of Penciller? No December 21, 2024 5:35pm Chief Complaint and Reason for Visit Chief Complaint Admit Date PALPITATIONS December 21, 2024 4:22 pm Additional Source Comments Source Comments (unrecognize d section and content) In the event this informatio n is protected by the Federal Confidentiality of Alcohol and Drug Abuse Patient Records regulations: The Federal rules restrict any use of the information to criminally investigate or prosecute any alcohol or drug abuse patient.[facility] HospitalIn the event this information is protected by the Federal Confidentiality of Alcohol and Drug Abuse Patient Records regulations: The Federal rules restrict any use of the information to criminally investigate or prosecute any alcohol or drug abuse patient.[facility] HospitalIn the event this information is protected by the Federal Confidentiality of Alcohol and Drug Abuse Patient Records regulations: The Federal rules restrict any use of the information to criminally investigate or prosecute any alcohol or drug abuse patient.[facility] HospitalIn the event this information is protected by the Federal Confidentiality of Alcohol and Drug Abuse Patient Records regulations: The Federal rules restrict any use of the information to criminally investigate or prosecute any alcohol or drug abuse patient.[facility] HospitalIn the event this information is protected by the Federal Confidentiality of Alcohol and Drug Abuse Patient Records regulations: The Federal rules restrict any use of the information to criminally investigate or prosecute any alcohol or drug abuse patient.[facility] HospitalIn the event this information is protected by the Federal Confidentiality of Alcohol and Drug Abuse Patient Records regulations: The Federal rules restrict any use of the information to criminally investigate or prosecute any alcohol or drug abuse patient.[facility] HospitalIn the event this information is protected by the Federal Confidentiality of Alcohol and Drug Abuse Patient Records regulations: The Federal rules restrict any use of the information to criminally investigate or prosecute any alcohol or drug abuse patient.[facility] Reason for Visit (unrecogniz ed section and content) Reason Comments Well Child Reason Comments Well Child 17 year Reason Comments New Swung bat and injure d left shoulder on 10/30/23 Pain Swung bat and injure d left shoulder on 10/30/23 Reason Comments Radio Gen RMP Specialty Diagnoses / Procedures Referred By Contac t Referred To Contact XR IMAGING Diagnoses Pain Procedures XR SHOULDER GENERAL 3V OR MORE AP/TRUE AP/OTHER LEFT RADEX SHOULDER COMPLETE MINIMUM 2 VIEWS Lashay Garrison PA-C [address] [place] [address] [place] [address] Referral ID Status Reason Start Date Expiration Date V isits Requested Visits Authorized [id number] Closed Auto-Generate d Referral 10/31/2023 11/29/2024 1 1 Reason Comments New Pain Reason Comments Refill Request Care Teams (unrecognized sec tion and content) Storage Center Manager Relationship Specialty Start Date End Date Donald Bangura DO [address] [place] [address] PCP - General 05 Storage Center Manager Relationship Specialty Start Date End Date Donald Bangura DO [address] [place] [address] PCP - General 05 Storage Center Manager Relationship Specialty Start Date End Date Donald Bangura DO [address] [place] [address] PCP - General 05 Storage Center Manager Relationship Specialty Start Date End Date Donald Bangura DO [address] [place] [address] PCP - General 05 Storage Center Manager Relationship Specialty Start Date End Date Donald Bangura DO [address] [place] [address] PCP - General 05 Storage Center Manager Relationship Specialty Start Date End Date BanguraDonald DO [address] [place] [address] PCP - General 05 Team Status: Active Member Role Status Dates Dr. Corry Rock MD Primary Care Provider Active Team Status: Inactive Member Role Status Dates Dr. Aditya Naejra MD Emergency Provider Active Sta rt: December 21, 2024 End: December 21, 2024 Dr. Corry Rock MD Primary Care Provider Active Start: December 21, 2024 End: December 21, 2024 Team Status: Active Member Role/Relationship Status Dates Dr. Corry Rock MD Primary Care Provider Active Team Status: Inactive Member Role/Relationship Status Dates Dr. Aditya Najera MD Attending Provider Active Sta rt: December 21, 2024 End: December 21, 2024 Dr. Aditya Najera MD Emergency Provider Active Sta rt: December 21, 2024 End: December 21, 2024 Dr. Corry Rock MD Primary Care Provider Active Start: December 21, 2024 End: December 21, 2024 Team Status: Inactive Member Role/Relationship Status Dates Dr. Corry Rock MD Primary Care Provider Active Start: February 24, 2025 End: February 24, 2025 Dr. Corry Rock MD Attending Provider Active Start: February 24, 2025 End: February 24, 2025 INFORMATION SOURCE (unrecogn ized section and content) DATE CREATED AUTHOR 11/02/2023 [facility] DATE CREATED AUTHOR AUTHOR'S ORGANIZ ATION 11/03/2023 [facility] DATE CREATED AUTHOR AUTHOR'S ORGANIZ ATION 03/03/2025 [facility] Goals (unrecognized section and content) Goals may be documented in a n alternate sectionGoals may be documented in an alternate section FOR RECORDS PERTAINING TO PATIENTS WHO ARE OR HAVE BEEN ENROLLED IN A CHEMICAL DEPENDENCY/SUBSTANCEABUSE PROGRAM, SOME INFORMATION MAY BE OMITTED. This clinical summary was aggregated from multiple sources. Caution should be exercised in using it in the provision of clinical care. This summary normalizes information from multiple sources, and as a consequence, information in this document may materially change the coding, format and clinical context of patient data. In addition, data may be omitted in some cases. CLINICAL DECISIONS SHOULD BE BASED ON THE PRIMARY CLINICAL RECORDS. [facility] provides no warranty or guarantee of the accuracy or completeness of information in this document.
== END | disposition home or self-care (01) ==
PROVIDERS: PCP Family Medicine; Referring Provider Family Medicine; Visit Provider Family Medicine
DX: R00.0 Tachycardia, unspecified (principal)
CPT/HCPCS: 93225; 93226